=== PATIENT | female | born 1995 ===

== ENCOUNTER 2021-03-13 10:29 | Emergency (ER) | payer OTHER, SELFPAY ==
--- NOTE | ~2021-03-13 | US_ITS ---
EXAMINATION: US ABDOMEN LIMITED CLINICAL INFORMATION: Right upper quadrant pain. COMPARISON: None TECHNIQUE: Real-time imaging of the right upper quadrant abdominal viscera. Today's examination is limited secondary to patient body habitus and overlying bowel gas. FINDINGS: PANCREAS: Visualized portions of pancreas are normal in appearance. LIVER: Normal. The liver is normal in size. The liver contour is normal. Parenchymal echogenicity is normal. No focal hepatic lesion. There is no intrahepatic biliary duct dilatation seen. GALLBLADDER: The gallbladder is physiologically distended. Multiple mobile gallstones are noted. No gallbladder wall thickening or pericholecystic fluid appreciated. Negative sonographic Coronado's sign. COMMON BILE DUCT: Normal in caliber measuring 0.3 cm in diameter. RIGHT KIDNEY: Normal. No hydronephrosis. No renal calculi or focal parenchymal lesions. The kidney measures 10 cm in maximum dimension. FREE FLUID: None. US/US abdomen limited IMPRESSION: Cholelithiasis. No other ultrasound evidence to suggest acute cholecystitis. Clinical correlation recommended.
[2021-03-13 10:46] VITALS: BP 107/56; PULSE 67; RESP 20; TEMP 36.3; O2SAT 98; BMI 35.3
--- NOTE | 2021-03-13 12:33 | ED.ABDPAIN ---
HPI - Abdominal Pain General Chief Complaint: Abdominal Pain Stated Complaint: claribel pain Time Seen by Provider: 03/13/21 12:31 History of Present Illness HPI narrative: Patient 26-year-old female presents today with having burning sensation to her chest. Going down to the epigastric area. Question affected by food. There is no shortness of breath is no diaphoresis there is no history of diabetes, hypertension, high cholesterol, mi. Patient on Pepcid. No dizziness. No coughing or upper respiratory symptoms immunized for COVID. No history of diarrhea. No vomiting. Patient from home. Sometimes worse at night Related Data Previous Rx's Medication Instructions Recorded pantoprazole 40 mg tablet,delayed 40 mg PO DAILY #14 tab 03/13/21 release (Protonix) Allergies Allergy/AdvReac Type Severity Reaction Status Date / Time No Known Allergies Allergy Unverified 11/11/20 12:49 Review of Systems Review of Systems Positive pain in the epigastric area, no nausea no vomiting Yes all other systems are reviewed and are negative Physical Exam Vital Signs: Vital Signs: Last Vital Signs Temp 99.0 F 03/13/21 12:46 Pulse 77 03/13/21 12:46 Resp 16 03/13/21 12:46 BP 113/62 03/13/21 12:46 Pulse Ox 100 03/13/21 12:46 Body Mass Index 35.3 Appearance: Alert. Oriented X3. No acute distress. Eyes: Pupils equal, round and reactive to light. ENT: Pharynx normal. Neck: Normal inspection. Neck supple. No lymph nodes noted. No crepitus CVS: Normal heart rate and rhythm. Pulses normal. Normal S1 and S2 Respiratory: No respiratory distress. Breath sounds normal. No Wheezing. No rales Abdomen: Soft and nontender. No rigidity. No distention. good BS x4 Skin: Skin warm and dry. Normal skin color. Normal skin turgor. Extremities: No lower extremity edema. Neurovascular intact to all extremities. No Lacerations. No Rash Neuro: Oriented X 3. No motor deficit. No sensory deficit. Moving all extermities. No slurred speech MDM - Abdominal Pain MDM Narrative Medical decision making narrative: Ultrasound of the right upper quadrant positive for gallstones. There is no evidence for cholecystitis. Patient's LFTs are normal. Question of patient's pain worsens with fatty food. Will have patient follow a strict low-fat diet. Close follow-up with surgery on an outpatient basis. In addition patient has pain suggestive of reflux. Will go ahead and have patient take PPI eyes. Small meals extra pillow to sleep. Reflux precaution. We will discharge patient home. Medical Records Attestation: I reviewed the patient's medical records. Lab Data Attestation: I reviewed the patient's lab results. Result diagrams: 03/13/21 12:46 03/13/21 12:46 Labs: Lab Results 03/13/21 03/13/21 Range/Units 12:46 12:46 WBC 7.1 (4.8-10.8) X10*3/uL RBC 3.89 L (4.20-5.50) X10*6/uL Hgb 11.5 L (12.0-16.0) g/dl Hct 35.3 L (37.0-47.0) % MCV 90.7 (80.0-98.0) fL MCH 29.6 (27.0-33.0) pg MCHC 32.6 (31.0-35.0) g/dl RDW 12.9 (11.0-16.0) % Plt Count 390 (160-400) X10*3/uL MPV 9.8 (9.4-12.3) fL Immature Gran % (Auto) 0.1 (0.0-0.4) % Neut % (Auto) 61.2 (45-73) % Lymph % (Auto) 28.0 (20-40) % Coffey % (Auto) 9.3 (2-11) % Eos % (Auto) 1.1 (0-4) % Baso % (Auto) 0.3 (0-2) % Lymph # (Auto) 2.0 (1.2-4.9) X10*3/uL Coffey # (Auto) 0.7 (0.1-1.2) X10*3/uL Eos # (Auto) 0.1 (0.0-0.4) X10*3/uL Baso # (Auto) 0.0 (0.0-0.2) X10*3/uL Abs Immat Gran (auto) 0.01 (0.00-0.03) X10*3/uL Absolute Neuts (auto) 4.3 (2.0-8.3) x10*3/uL Absolute Nucleated RBC 0.000 (0.0-0.012) X10*3/uL Nucleated RBC % (auto) 0.0 (0.0-0.2) /100WBC Sodium 139 (135-145) mmol/L Potassium 3.6 (3.3-5.1) mmol/L Chloride 107 (96-108) mmol/L Carbon Dioxide 27 (22-29) mmol/L Anion Gap 9 L (12-20) BUN 8 L (9-16) mg/dL Creatinine 0.68 (0.5-1.4) mg/dL Estim Creat Clear Calc 140.1 Estimated GFR > 60 Random Glucose 81 (60-115) mg/dL Calcium 8.6 (8.4-10.2) mg/dL Total Bilirubin 0.4 (0.0-1.0) mg/dL Direct Bilirubin 0.2 (0.0-0.5) mg/dL AST 12 (5-31) U/L ALT 17 (0-31) U/L Alkaline Phosphatase 63 (39-117) U/L Total Protein 7.0 (6.5-8.0) g/dL Albumin 3.8 (3.5-5.0) g/dL Lipase 27 (8-78) U/L Discharge Plan Discharge Clinical Impression: Gastritis, Biliary colic, Acid reflux Patient Disposition: Home, Self-Care Instructions: Gastritis (ED), Biliary Colic (ED), Diet for Stomach Ulcers and Gastritis (ED) Prescriptions: New pantoprazole [Protonix] 40 mg tablet,delayed release (DR/EC) 40 mg PO DAILY Qty: 14 RF: 0 Discontinued famotidine [Pepcid] 40 mg tablet 40 mg PO BEDTIME Qty: 30 RF: 0 omeprazole 40 mg capsule,delayed release(DR/EC) 40 mg PO DAILY Qty: 30 RF: 2 Referrals: Fernando Rock MD [Physician] - 2 days Irma Sebastian NP [Primary Care Provider] - 2 days [facility] Past Medical History Attestation statement: The following information was validated with the patient. Social History Social History Advance Directives: No Advance Directives Information Provided: No Patient : No
[2021-03-13] MEDS: Magnesium Hydrox/Alum Hydrox 30 ML ORAL.SUSP PO (12:41)
[2021-03-13 12:46] VITALS: BP 113/62; PULSE 77; RESP 16; TEMP 37.2; O2SAT 100
[2021-03-13 13:05] LABS: MANUAL DIFF FLAG NO
[2021-03-13 13:12] LABS: Basophils Percent Auto 0.3 % (0-2); Eosinophils Absolute Auto 0.1 X10*3/uL (0.0-0.4); Eosinophils Percent Auto 1.1 % (0-4); Hematocrit 35.3 % (37.0-47.0); Hemoglobin 11.5 g/dl (12.0-16.0); Imm Gran Abs Auto 0.01 X10*3/uL (0.00-0.03); Imm Gran Pct Auto 0.1 % (0.0-0.4); Mean Corpuscular HGB Conc 32.6 g/dl (31.0-35.0); Mean Corpuscular Hemoglobin 29.6 pg (27.0-33.0); Mean Corpuscular Volume 90.7 fL (80.0-98.0); Mean Platelet Volume 9.8 fL (9.4-12.3); Monocytes Absolute Auto 0.7 X10*3/uL (0.1-1.2); Monocytes Percent Auto 9.3 % (2-11); Neutrophils Absolute Auto 4.3 x10*3/uL (2.0-8.3); Neutrophils Percent Auto 61.2 % (45-73); Platelet Count 390 X10*3/uL (160-400); Red Blood Count 3.89 X10*6/uL (4.20-5.50); Red Cell Distribution Width 12.9 % (11.0-16.0); White Blood Count 7.1 X10*3/uL (4.8-10.8)
[2021-03-13 13:31] LABS: Alanine Aminotransferase 17 U/L (0-31); Albumin Level 3.8 g/dL (3.5-5.0); Alkaline Phosphatase 63 U/L (39-117); Anion Gap 9 (12-20); Aspartate Amino Transferase 12 U/L (5-31); Bilirubin Direct 0.2 mg/dL (0.0-0.5); Bilirubin Total 0.4 mg/dL (0.0-1.0); Blood Urea Nitrogen 8 mg/dL (9-16); Calcium 8.6 mg/dL (8.4-10.2); Carbon Dioxide 27 mmol/L (22-29); Chloride 107 mmol/L (96-108); Creatinine Clr Calc Pharmacy 140.1; Estimated Glomerular Filt Rate > 60; Glucose Random 81 mg/dL (60-115); Lipase 27 U/L (8-78); Potassium 3.6 mmol/L (3.3-5.1); Sodium 139 mmol/L (135-145)
[2021-03-13 14:05] LABS: Appearance Urine CLEAR; Color Urine YELLOW; Glucose Urine UA NEG (NEG); Leukocyte Esterase Urine NEG (NEG); Nitrite Urine NEG (NEG); UACC Culture Trigger NO; Urine Blood TRACE (NEG); Urine Ketones NEG (NEG); Urine Protein TRACE MG/DL (NEG-TRACE)
[2021-03-13 14:07] LABS: UPreg QC Valid YES; Urine Pregnancy NEGATIVE (NEGATIVE)
[2021-03-13 14:19] LABS: Bacteria Urine TRACE /LPF; Mucus Urine 4+ /LPF; Squamous Epithelial Cell Urine 1+ /LPF; WBC Urine 0-2 /HPF (0-4)
== END 2021-03-13 14:44 | disposition home or self-care (01) ==
PROVIDERS: Emergency Provider Emergency Medicine Emergency Medical Services; PCP Hospitalist
DX: K80.50 Calculus of bile duct without cholangitis or cholecystitis without obstruction (principal); K29.70 Gastritis, unspecified, without bleeding; K21.9 Gastro-esophageal reflux disease without esophagitis; R10.13 Epigastric pain; Z79.899 Other long term (current) drug therapy
CPT/HCPCS: 36415; 76705; 80048; 80076; 81001; 81025; 83690; 85025; 99283; 99284

== ENCOUNTER → 2021-03-15 10:49 | Outpatient (BNVA) | payer OTHER, SELFPAY | PROVIDERS: PCP Hospitalist; Referring Provider Hospitalist; Visit Provider Surgery | DX: K80.20 Calculus of gallbladder without cholecystitis without obstruction (principal) | CPT/HCPCS: 99202 ==

== ENCOUNTER 2021-05-25 12:24 | Emergency (ER) | payer OTHER, SELFPAY ==
--- NOTE | ~2021-05-25 | XR_ITS ---
EXAMINATION: XR ANKLE, LEFT CLINICAL INFORMATION: Twisted ankle COMPARISON: None TECHNIQUE: AP, lateral, and mortise views of the left ankle. FINDINGS: The bones and soft tissues are normal aside from some mild lateral soft tissue swelling. No fracture. Alignment is anatomic. Joint spaces are maintained. No joint effusion. XR/XR ankle LT min 3V IMPRESSION: Soft tissue swelling laterally without fracture
[2021-05-25 12:35] VITALS: BP 126/75; PULSE 80; RESP 18; TEMP 36.6; O2SAT 99; BMI 36.3
--- NOTE | 2021-05-25 13:09 | ED_ITS ---
HPI - Extremity Injury (Lower) General Chief Complaint: Extremity Injury, Lower Stated Complaint: L leg pain Time Seen by Provider: 05/25/21 13:09 Source: patient Mode of arrival: ambulatory Limitations: no limitations History of Present Illness HPI Narrative: This is a 26-year-old female no known medical history presenting to the emergency department with complaints of left ankle pain/swelling that started on Saturday, 6 days ago. Patient tells me that she was running, rolled her ankle and immediately started experiencing pain. She tells me the pain improved and now has gotten a little bit worse. She has been walking without an issue so she tells me it is a little bit painful to walk and to perform range of motion. She has no other concerns at this time. Sensory and motor intact. MD complaint: ankle injury (left) Onset (ago): day(s) (6) Place: home Severity: moderate Severity scale (1-10): 5 Relieving factors: immobilization and rest Exacerbating factors: movement Context: other (rolled ankle while running.) Associated symptoms: swelling and ambulatory Other symptoms: none Related Data Home Medications Medication Instructions Recorded Confirmed No Known Home Meds 04/03/21 Allergies Allergy/AdvReac Type Severity Reaction Status Date / Time No Known Allergies Allergy Verified 04/03/21 13:38 Review of Systems Review of Systems: Constitutional : No Fever, No Chills, Cardiovascular : No Chest Pain, No SOB Respiratory : No Dyspnea Gastrointestinal : No abdominal pain Musculoskeletal : + Joint Swelling, + Joint pain Skin : No rash, No skin laceration Neuro : No Weakness, No Numbness Psych : No SI/HI Yes all other systems are reviewed and are negative [facility] Past Medical History Attestation statement: The following information was validated with the patient. Source: old records reviewed and nursing notes reviewed Medical History Gallstones Social History Social History Housing: Apartment Patient Tobacco Use Status: Never used Tobacco e-Cigarette/Vaping Use: Never Used Second Hand Smoke Exposure: No Advance Directives: No Advance Directives Information Provided: No service: No Current occupational status: unemployed Physical Exam Vital Signs: Vital Signs: Last Vital Signs Temp 98 F 05/25/21 12:35 Pulse 80 01/20/22 12:35 Resp 18 05/25/21 12:35 BP 126/75 05/25/21 12:35 Pulse Ox 99 05/25/21 12:35 BMI result Body Mass Index 36.3 VSS Appearance: Alert.? Oriented X3.? No acute distress.? Head: Normocephalic, atraumatic, no step-offs or deformities Eyes: Pupils equal, round and reactive to light.? ENT: Pharynx normal.? Neck: Normal inspection.? Neck supple.? CVS: Normal heart rate and rhythm.? Pulses normal.? Respiratory: No respiratory distress.? Breath sounds normal.? Abdomen: Soft and nontender.? Skin: Skin warm and dry.? Normal skin color.? Normal skin turgor.? Extremities: No lower extremity edema.? No calf ttp. 5/5 strength to bilateral upper and lower extremities. Normal inspection to bilateral lower extremities including ankle, normal strength. 2+ DP and PT pulses. Back: No midline tenderness, no C-spine tenderness, full range of motion, no CVA tenderness bilaterally Neuro: Oriented X 3.? No motor deficit.? No sensory deficit. Course Reevaluation(s) Reevaluation #1: xray negative. She was put in an Aircast. Did not want crutches. At this time I feel as though she is safe for discharge home with PCP follow-up. There is no evident ligament or tendon involvement. She has been advised to return with new or worsening symptom Time: 14:12 MDM - Extremity Injury (Lower) [facility] Narrative Medical decision making narrative: 1312 26 yo f presents w/ left ankle pain/swelling s/p rolling her ankle 6 days ago. Able to bear weight. PE benign Plan- xray, air cast Medical Records Attestation: I reviewed the patient's medical records. Lab Data Attestation: I reviewed the patient's lab results. Critical Care Time Critical Care Time Critical Care Time: No Discharge Plan Discharge Clinical Impression: Ankle sprain and strain Patient Disposition: Home, Self-Care Instructions: Ankle Sprain (ED) Additional Instructions: Take your medications as prescribed. If you were prescribed antibiotics today, it is important that you take your medication to their entirety, do not skip any doses, do not finish them early. Follow-up with your primary care provider this week. Take ibuprofen every 6 hours, Tylenol every 4 as needed for pain. Return to the emergency department with new or worsening symptoms. In case of emergency call 911 Prescriptions: No Action No Known Home Meds RF: 0 Referrals: Irma Sebastian NP [Primary Care Provider] - 2 days Stand Alone Forms: Work/School Release Interventions: ED Discharge Assessment Last Done: 05/25/21 14:05 Discharge Date/Time: 05/25/21 14:06
== END 2021-05-25 14:22 | disposition home or self-care (01) ==
PROVIDERS: Emergency Provider Emergency Medicine Emergency Medical Services; PCP Hospitalist
DX: S93.402A Sprain of unspecified ligament of left ankle, initial encounter (principal); S96.912A Strain of unspecified muscle and tendon at ankle and foot level, left foot, initial encounter; X50.1XXA Overexertion from prolonged static or awkward postures, initial encounter; Y93.02 Activity, running; Y92.480 Sidewalk as the place of occurrence of the external cause; Y99.9 Unspecified external cause status
CPT/HCPCS: 73610; 99283; 99284

== ENCOUNTER 2022-04-02 10:23 | Emergency (ER) | payer OTHER, SELFPAY ==
--- NOTE | ~2022-04-02 | US_ITS ---
EXAMINATION: US ABDOMEN LIMITED CLINICAL INFORMATION: Right upper quadrant and flank pain. COMPARISON: Abdominal ultrasound dated 03/13/2021. TECHNIQUE: Real-time imaging of the right upper quadrant abdominal viscera. FINDINGS: PANCREAS: Visualized portions unremarkable. LIVER: Unremarkable. GALLBLADDER: Multiple echogenic gallstones fill the gallbladder lumen which is minimally distended. No significant mural thickening or pericholecystic fluid. Color Doppler showed no abnormal vascular flow. COMMON BILE DUCT: Normal in caliber measuring 0.4 cm in diameter. RIGHT KIDNEY: 10.9 cm. Unremarkable. FREE FLUID: None. US/US abdomen limited IMPRESSION: Cholelithiasis appears increased compared to the previous study with limited evaluation. No overt evidence for acute cholecystitis.
[2022-04-02 11:33] VITALS: BP 109/63; PULSE 72; RESP 18; TEMP 36.4; O2SAT 100; BMI 35.8
--- NOTE | 2022-04-02 12:09 | ED_ITS ---
HPI - Abdominal Pain General Chief Complaint: Abdominal Pain <ATA Oglesby - Last Filed: 04/02/22 12:17> Stated Complaint: Gallbladder issues/Vomiting <ATA Oglesby - Last Filed: 04/02/22 12:17> Time Seen by Provider: 04/02/22 15:38 <ATA Oglesby - Last Filed: 04/02/22 12:17> Source: patient <Alexa Seymour NILS Rodriguez - Last Filed: 04/02/22 21:30> Mode of arrival: ambulatory <Alexa Rodriguez CNP - Last Filed: 04/02/22 21:30> Limitations: no limitations <Alexa Rodriguez CNP - Last Filed: 04/02/22 21:30> History of Present Illness HPI narrative: Patient is a 27-year-old female presents to the emergency department for evaluation of right upper quadrant/lateral abdominal pain that began this morning while sitting on the couch. She reports associated nausea with a single episode of vomiting. She states it feels similar to prior gallbladder attacks this feels worse. She states that she has been seen by a surgeon in the past and they recommended surgical removal of the gallbladder with at that time she had declined surgery. Denies fevers, chills, persistent vomiting while at the emergency department, chest pain, shortness of breath, or abdominal pain, dysuria, urinary frequency. <Alexa Rodriguez CNP - Last Filed: 04/02/22 21:30> Related Data Home Medications: Previous Rx's Medication Instructions Recorded ibuprofen 600 mg tablet 600 mg PO Q8H PRN pain #30 tabs 04/02/22 <ATA Oglesby - Last Filed: 04/02/22 12:17> Allergies/Adverse Reactions: Allergies Allergy/AdvReac Type Severity Reaction Status Date / Time No Known Allergies Allergy Verified 06/27/21 11:55 <ATA Oglesby - Last Filed: 04/02/22 12:17> Review of Systems Review of Systems Constitutional : No Weight loss, No Fever, No Chills ENT/Mouth :? No sore throat, No Rhinorrhea Eyes: No Swelling, No Redness Cardiovascular : No Chest Pain, No SOB, No Edema Respiratory : No Cough, No Sputum, No Wheezing Gastrointestinal : Positive Nausea, Positive Vomiting, no Diarrhea, positive abdominal pain, No Hematochezia, No Melena Genitourinary : No Dysuria, No Urinary Frequency, No Hematuria, No Urgency? Musculoskeletal : No joint pain, No Myalgias, No Joint Swelling Skin : No Skin Lesions, No rash Neuro : No Weakness, No Numbness, No Dizziness, No Headache Psych : No Anxiety/Panic, No Depression Heme/Lymph: No Bruising, No Lymphadenopathy Endocrine : No Polyuria, No Polydipsia <Alexa Rodriguez CNP - Last Filed: 04/02/22 21:30> Yes all other systems are reviewed and are negative <Alexa Rodriguez CNP - Last Filed: 04/02/22 21:30> [facility] Past Medical History Attestation statement: The following information was validated with the patient. <Alexa Rodriguez CNP - Last Filed: 04/02/22 21:30> Source: old records reviewed <Alexa Rodriguez CNP - Last Filed: 04/02/22 21:30> Medical History: Medical History Gallstones <ATA Oglesby - Last Filed: 04/02/22 12:17> Surgical History: Surgical History No pertinent past surgical history <ATA Oglesby - Last Filed: 04/02/22 12:17> Social History Social History: Social History Housing: Apartment Patient Tobacco Use Status: Never used Tobacco e-Cigarette/Vaping Use: Never Used Second Hand Smoke Exposure: No Advance Directives: No Advance Directives Information Provided: Yes service: No Current occupational status: unemployed and disabled Cognitive needs: No Hearing needs: No Vision needs: No <ATA Oglesby - Last Filed: 04/02/22 12:17> Physical Exam ED Vital Signs: Vital Signs - 24 hr 04/02/22 11:33 Temperature 97.6 F Pulse Rate 72 Respiratory Rate 18 Blood Pressure 109/63 Pulse Oximetry 100 Oxygen Delivery Method Room Air BMI result Body Mass Index 35.8 <ATA Oglesby - Last Filed: 04/02/22 12:17> Vital Signs - 24 hr 04/02/22 11:33 Temperature 97.6 F Pulse Rate 72 Respiratory Rate 18 Blood Pressure 109/63 Pulse Oximetry 100 Oxygen Delivery Method Room Air BMI result Body Mass Index 35.8 <Alexa Rodriguez CNP - Last Filed: 04/02/22 21:30> Appearance: Alert.?Oriented to person, place and time. No acute distress.?Normal affect. Eyes: Pupils equal, round and reactive to light.? ENT: Pharynx normal.?? Neck: Normal inspection.? Neck supple.?? CVS: Heart sounds normal. Normal heart rate and rhythm.? Pulses normal.?? Respiratory: No respiratory distress.? Lung sounds clear to auscultation bilaterally?? Abdomen: Soft with mild right upper quadrant tenderness upon palpation. Normoactive bowel sounds. Skin: Skin warm and dry.? Normal skin color.? Extremities: No lower extremity edema.? Neuro: Moves all extremities spontaneously. Sensation intact bilaterally. No focal neuro deficits. Ambulates with normal steady gait. <Alexa Rodriguez CNP - Last Filed: 04/02/22 21:30> Course Course Course Narrative: 27 yo female with history of gallstones, biliary colic and gastritis who presents with acute onset of RUQ and right flank pain that started today when she was on the cough. +N/V. Worse than prior gallbladder attacks. Will get labs and RUQ/right kidney U/S for further evaluation. <ATA Oglesby - Last Filed: 04/02/22 12:17> Reevaluation(s) Reevaluation #1: Patient is a 27-year-old female with a past medical history of cholelithiasis gastritis into the emergency department for evaluation of upper quadrant abdominal pain. Labs ordered from A reviewed. CMP overall unremarkable, mild leukocytosis of 11.3. Lipase within normal limits. CMP overall unremarkable. Ultrasound reveals cholelithiasis without overt evidence of acute cholecystitis, kidneys are unremarkable. No evidence of urinary tract infection. Tolerating oral solids and fluids while in the emergency department. 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 All questions answered. She is discharged in stable condition. <Alexa Rodriguez CNP - Last Filed: 04/02/22 21:30> Time: 16:15 <Alexa Rodriguez CNP - Last Filed: 04/02/22 21:30> MDM - Abdominal Pain Medical Records Attestation: I reviewed the patient's medical records. <Alexa Rodriguez CNP - Last Filed: 04/02/22 21:30> Lab Data Attestation: I reviewed the patient's lab results. <Alexa Rodriguez CNP - Last Filed: 04/02/22 21:30> Result diagrams: : 04/02/22 12:13 04/02/22 12:13 <ATA Oglesby - Last Filed: 04/02/22 12:17> Labs: Lab Results 04/02/22 04/02/22 04/02/22 Range/Units 12:13 12:13 12:44 WBC 11.3 H (4.8-10.8) X10*3/uL RBC 4.21 (4.20-5.50) X10*6/uL Hgb 12.6 (12.0-16.0) g/dl Hct 38.5 (37.0-47.0) % MCV 91.4 (80.0-98.0) fL MCH 29.9 (27.0-33.0) pg MCHC 32.7 (31.0-35.0) g/dl RDW 12.8 (11.0-16.0) % Plt Count 408 H (160-400) X10*3/uL MPV 9.7 (9.4-12.3) fL Immature Gran % (Auto) 0.3 (0.0-0.4) % Neut % (Auto) 85.5 H (45-73) % Lymph % (Auto) 9.6 L (20-40) % [place] % (Auto) 4.1 (2-11) % Eos % (Auto) 0.2 (0-4) % Baso % (Auto) 0.3 (0-2) % Lymph # (Auto) 1.1 L (1.2-4.9) X10*3/uL [place] # (Auto) 0.5 (0.1-1.2) X10*3/uL Eos # (Auto) 0.0 (0.0-0.4) X10*3/uL Baso # (Auto) 0.0 (0.0-0.2) X10*3/uL Abs Immat Gran (auto) 0.03 (0.00-0.03) X10*3/uL Absolute Neuts (auto) 9.7 H (2.0-8.3) x10*3/uL Absolute Nucleated RBC 0.000 (0.0-0.012) X10*3/uL Nucleated RBC % (auto) 0.0 (0.0-0.2) /100WBC Sodium 135 (135-145) mmol/L Potassium 4.4 D (3.3-5.1) mmol/L Chloride 106 (96-108) mmol/L Carbon Dioxide 23 (22-29) mmol/L Anion Gap 10 L (12-20) BUN 15 (9-16) mg/dL Creatinine 0.83 (0.5-1.4) mg/dL Estim Creat Clear Calc 102.3 Estimated GFR > 60 Random Glucose 166 H (60-115) mg/dL Calcium 9.0 (8.4-10.2) mg/dL Total Bilirubin 0.4 (0.0-1.0) mg/dL Direct Bilirubin 0.2 (0.0-0.5) mg/dL AST 15 (5-31) U/L ALT 23 (0-31) U/L Alkaline Phosphatase 72 (39-117) U/L Total Protein 7.4 (6.5-8.0) g/dL Albumin 3.9 (3.5-5.0) g/dL Lipase 21 (8-78) U/L Urine Color Yellow Urine Appearance Clear Urine pH 5.5 (5.0-9.0) Ur Specific [place] >= 1.030 H (1.005-1.025) Urine Protein Negative (Neg-Trace) mg/dL Urine Glucose (UA) Negative (Negative) mg/dL Urine Ketones 40 (Negative) mg/dL Urine Blood Moderate (2+) H (Negative) Urine Nitrite Negative (Negative) Ur Leukocyte Esterase Negative (Negative) Urine RBC 11-20 H (0-2) /HPF Urine WBC 0-5 (0-5) /HPF Ur Squamous Epith Cells 0-2 (0-2) /HPF Urine Bacteria None Seen (None Seen) Hyaline Casts 0-2 (0-2) /LPF Urine Test (NEGATIVE) 04/02/22 Range/Units 12:44 WBC (4.8-10.8) X10*3/uL RBC (4.20-5.50) X10*6/uL Hgb (12.0-16.0) g/dl Hct (37.0-47.0) % MCV (80.0-98.0) fL MCH (27.0-33.0) pg MCHC (31.0-35.0) g/dl RDW (11.0-16.0) % Plt Count (160-400) X10*3/uL MPV (9.4-12.3) fL Immature Gran % (Auto) (0.0-0.4) % Neut % (Auto) (45-73) % Lymph % (Auto) (20-40) % [place] % (Auto) (2-11) % Eos % (Auto) (0-4) % Baso % (Auto) (0-2) % Lymph # (Auto) (1.2-4.9) X10*3/uL [place] # (Auto) (0.1-1.2) X10*3/uL Eos # (Auto) (0.0-0.4) X10*3/uL Baso # (Auto) (0.0-0.2) X10*3/uL Abs Immat Gran (auto) (0.00-0.03) X10*3/uL Absolute Neuts (auto) (2.0-8.3) x10*3/uL Absolute Nucleated RBC (0.0-0.012) X10*3/uL Nucleated RBC % (auto) (0.0-0.2) /100WBC Sodium (135-145) mmol/L Potassium (3.3-5.1) mmol/L Chloride (96-108) mmol/L Carbon Dioxide (22-29) mmol/L Anion Gap (12-20) BUN (9-16) mg/dL Creatinine (0.5-1.4) mg/dL Estim Creat Clear Calc Estimated GFR Random Glucose (60-115) mg/dL Calcium (8.4-10.2) mg/dL Total Bilirubin (0.0-1.0) mg/dL Direct Bilirubin (0.0-0.5) mg/dL AST (5-31) U/L ALT (0-31) U/L Alkaline Phosphatase (39-117) U/L Total Protein (6.5-8.0) g/dL Albumin (3.5-5.0) g/dL Lipase (8-78) U/L Urine Color Urine Appearance Urine pH (5.0-9.0) Ur Specific [place] (1.005-1.025) Urine Protein (Neg-Trace) mg/dL Urine Glucose (UA) (Negative) mg/dL Urine Ketones (Negative) mg/dL Urine Blood (Negative) Urine Nitrite (Negative) Ur Leukocyte Esterase (Negative) Urine RBC (0-2) /HPF Urine WBC (0-5) /HPF Ur Squamous Epith Cells (0-2) /HPF Urine Bacteria (None Seen) Hyaline Casts (0-2) /LPF Urine Test NEGATIVE (NEGATIVE) <ATA Oglesby - Last Filed: 04/02/22 12:17> Lab Results 04/02/22 04/02/22 04/02/22 Range/Units 12:13 12:13 12:44 WBC 11.3 H (4.8-10.8) X10*3/uL RBC 4.21 (4.20-5.50) X10*6/uL Hgb 12.6 (12.0-16.0) g/dl Hct 38.5 (37.0-47.0) % MCV 91.4 (80.0-98.0) fL MCH 29.9 (27.0-33.0) pg MCHC 32.7 (31.0-35.0) g/dl RDW 12.8 (11.0-16.0) % Plt Count 408 H (160-400) X10*3/uL MPV 9.7 (9.4-12.3) fL Immature Gran % (Auto) 0.3 (0.0-0.4) % Neut % (Auto) 85.5 H (45-73) % Lymph % (Auto) 9.6 L (20-40) % [place] % (Auto) 4.1 (2-11) % Eos % (Auto) 0.2 (0-4) % Baso % (Auto) 0.3 (0-2) % Lymph # (Auto) 1.1 L (1.2-4.9) X10*3/uL [place] # (Auto) 0.5 (0.1-1.2) X10*3/uL Eos # (Auto) 0.0 (0.0-0.4) X10*3/uL Baso # (Auto) 0.0 (0.0-0.2) X10*3/uL Abs Immat Gran (auto) 0.03 (0.00-0.03) X10*3/uL Absolute Neuts (auto) 9.7 H (2.0-8.3) x10*3/uL Absolute Nucleated RBC 0.000 (0.0-0.012) X10*3/uL Nucleated RBC % (auto) 0.0 (0.0-0.2) /100WBC Sodium 135 (135-145) mmol/L Potassium 4.4 D (3.3-5.1) mmol/L Chloride 106 (96-108) mmol/L Carbon Dioxide 23 (22-29) mmol/L Anion Gap 10 L (12-20) BUN 15 (9-16) mg/dL Creatinine 0.83 (0.5-1.4) mg/dL Estim Creat Clear Calc 102.3 Estimated GFR > 60 Random Glucose 166 H (60-115) mg/dL Calcium 9.0 (8.4-10.2) mg/dL Total Bilirubin 0.4 (0.0-1.0) mg/dL Direct Bilirubin 0.2 (0.0-0.5) mg/dL AST 15 (5-31) U/L ALT 23 (0-31) U/L Alkaline Phosphatase 72 (39-117) U/L Total Protein 7.4 (6.5-8.0) g/dL Albumin 3.9 (3.5-5.0) g/dL Lipase 21 (8-78) U/L Urine Color Yellow Urine Appearance Clear Urine pH 5.5 (5.0-9.0) Ur Specific [place] >= 1.030 H (1.005-1.025) Urine Protein Negative (Neg-Trace) mg/dL Urine Glucose (UA) Negative (Negative) mg/dL Urine Ketones 40 (Negative) mg/dL Urine Blood Moderate (2+) H (Negative) Urine Nitrite Negative (Negative) Ur Leukocyte Esterase Negative (Negative) Urine RBC 11-20 H (0-2) /HPF Urine WBC 0-5 (0-5) /HPF Ur Squamous Epith Cells 0-2 (0-2) /HPF Urine Bacteria None Seen (None Seen) Hyaline Casts 0-2 (0-2) /LPF Urine Test (NEGATIVE) 04/02/22 Range/Units 12:44 WBC (4.8-10.8) X10*3/uL RBC (4.20-5.50) X10*6/uL Hgb (12.0-16.0) g/dl Hct (37.0-47.0) % MCV (80.0-98.0) fL MCH (27.0-33.0) pg MCHC (31.0-35.0) g/dl RDW (11.0-16.0) % Plt Count (160-400) X10*3/uL MPV (9.4-12.3) fL Immature Gran % (Auto) (0.0-0.4) % Neut % (Auto) (45-73) % Lymph % (Auto) (20-40) % [place] % (Auto) (2-11) % Eos % (Auto) (0-4) % Baso % (Auto) (0-2) % Lymph # (Auto) (1.2-4.9) X10*3/uL [place] # (Auto) (0.1-1.2) X10*3/uL Eos # (Auto) (0.0-0.4) X10*3/uL Baso # (Auto) (0.0-0.2) X10*3/uL Abs Immat Gran (auto) (0.00-0.03) X10*3/uL Absolute Neuts (auto) (2.0-8.3) x10*3/uL Absolute Nucleated RBC (0.0-0.012) X10*3/uL Nucleated RBC % (auto) (0.0-0.2) /100WBC Sodium (135-145) mmol/L Potassium (3.3-5.1) mmol/L Chloride (96-108) mmol/L Carbon Dioxide (22-29) mmol/L Anion Gap (12-20) BUN (9-16) mg/dL Creatinine (0.5-1.4) mg/dL Estim Creat Clear Calc Estimated GFR Random Glucose (60-115) mg/dL Calcium (8.4-10.2) mg/dL Total Bilirubin (0.0-1.0) mg/dL Direct Bilirubin (0.0-0.5) mg/dL AST (5-31) U/L ALT (0-31) U/L Alkaline Phosphatase (39-117) U/L Total Protein (6.5-8.0) g/dL Albumin (3.5-5.0) g/dL Lipase (8-78) U/L Urine Color Urine Appearance Urine pH (5.0-9.0) Ur Specific [place] (1.005-1.025) Urine Protein (Neg-Trace) mg/dL Urine Glucose (UA) (Negative) mg/dL Urine Ketones (Negative) mg/dL Urine Blood (Negative) Urine Nitrite (Negative) Ur Leukocyte Esterase (Negative) Urine RBC (0-2) /HPF Urine WBC (0-5) /HPF Ur Squamous Epith Cells (0-2) /HPF Urine Bacteria (None Seen) Hyaline Casts (0-2) /LPF Urine Test NEGATIVE (NEGATIVE) <Alexa Rodriguez CNP - Last Filed: 04/02/22 21:30> Imaging Data US - abdomen: Radiologist's impression: FINDINGS: PANCREAS: Visualized portions unremarkable. LIVER: Unremarkable. GALLBLADDER: Multiple echogenic gallstones fill the gallbladder lumen which is minimally distended. No significant mural thickening or pericholecystic fluid. Color Doppler showed no abnormal vascular flow. COMMON BILE DUCT: Normal in caliber measuring 0.4 cm in diameter. RIGHT KIDNEY: 10.9 cm. Unremarkable. FREE FLUID: None. US/US abdomen limited IMPRESSION: Cholelithiasis appears increased compared to the previous study with limited evaluation. No overt evidence for acute cholecystitis. <Alexa Rodriguez CNP - Last Filed: 04/02/22 21:30> Discharge Plan Discharge Clinical Impression: Biliary colic, Gallstones <ATA Oglesby - Last Filed: 04/02/22 12:17> Patient Disposition: Home, Self-Care <ATA Oglesby - Last Filed: 04/02/22 12:17> Instructions: Biliary Colic (ED), Gallstones (ED) <ATA Oglesby - Last Filed: 04/02/22 12:17> Additional Instructions: You can take ibuprofen 200 mg, 3 tablets (600mg) every 6-8 hours as needed for pain, in addition to Tylenol 500 mg, 2 tablets (1,000mg) every 4-6 hours as needed for pain, but not to exceed 3 doses daily (3,000mg).? Avoid foods that are high in fat and greasy exacerbate your pain. Return to emergency department any new or worsening symptoms or concerns. Contact general surgery office to arrange for follow-up and discuss possible surgical options if you are interested. <ATA Oglesby - Last Filed: 04/02/22 12:17> Prescriptions: New ibuprofen 600 mg tablet 600 mg PO Q8H PRN (Reason: pain) Qty: 30 0RF <ATA Oglesby - Last Filed: 04/02/22 12:17> Referrals: Hudson Hatch MD [Physician] - <ATA Oglesby - Last Filed: 04/02/22 12:17> Interventions: ED Discharge Assessment Last Done: 04/02/22 16:36 <ATA Oglesby - Last Filed: 04/02/22 12:17> Discharge Date/Time: 04/02/22 16:38 <ATA Oglesby - Last Filed: 04/02/22 12:17>
[2022-04-02 12:20] LABS: MANUAL DIFF FLAG NO
[2022-04-02 12:24] LABS: Basophils Percent Auto 0.3 % (0-2); Eosinophils Percent Auto 0.2 % (0-4); Hematocrit 38.5 % (37.0-47.0); Hemoglobin 12.6 g/dl (12.0-16.0); Imm Gran Abs Auto 0.03 X10*3/uL (0.00-0.03); Imm Gran Pct Auto 0.3 % (0.0-0.4); Lymphocytes Absolute Auto 1.1 X10*3/uL (1.2-4.9); Lymphocytes Percent Auto 9.6 % (20-40); Mean Corpuscular HGB Conc 32.7 g/dl (31.0-35.0); Mean Corpuscular Hemoglobin 29.9 pg (27.0-33.0); Mean Corpuscular Volume 91.4 fL (80.0-98.0); Mean Platelet Volume 9.7 fL (9.4-12.3); Monocytes Absolute Auto 0.5 X10*3/uL (0.1-1.2); Monocytes Percent Auto 4.1 % (2-11); Neutrophils Absolute Auto 9.7 x10*3/uL (2.0-8.3); Neutrophils Percent Auto 85.5 % (45-73); Platelet Count 408 X10*3/uL (160-400); Red Blood Count 4.21 X10*6/uL (4.20-5.50); Red Cell Distribution Width 12.8 % (11.0-16.0); White Blood Count 11.3 X10*3/uL (4.8-10.8)
[2022-04-02 12:53] LABS: Alanine Aminotransferase 23 U/L (0-31); Albumin Level 3.9 g/dL (3.5-5.0); Alkaline Phosphatase 72 U/L (39-117); Anion Gap 10 (12-20); Aspartate Amino Transferase 15 U/L (5-31); Bilirubin Direct 0.2 mg/dL (0.0-0.5); Bilirubin Total 0.4 mg/dL (0.0-1.0); Carbon Dioxide 23 mmol/L (22-29); Chloride 106 mmol/L (96-108); Creatinine Clr Calc Pharmacy 102.3; Estimated Glomerular Filt Rate > 60; Glucose Random 166 mg/dL (60-115); Lipase 21 U/L (8-78); Potassium 4.4 mmol/L (3.3-5.1); Sodium 135 mmol/L (135-145); Total Protein 7.4 g/dL (6.5-8.0)
[2022-04-02 12:59] LABS: Appearance Urine Clear; Color Urine Yellow; Glucose Urine UA Negative (Negative); Leukocyte Esterase Urine Negative (Negative); Nitrite Urine Negative (Negative); PH 5.5 (5.0-9.0); Specific Gravity - Urine >= 1.030 (1.005-1.025); UMIC TRIGGER UACC YES; Urine Blood Moderate (2+) (Negative); Urine Ketones 40 mg/dL (Negative); Urine Protein Negative (Neg-Trace)
[2022-04-02 13:01] LABS: UPreg QC Valid YES; Urine Pregnancy NEGATIVE (NEGATIVE)
[2022-04-02 13:02] LABS: Bacteria Urine None Seen (None Seen); Hyaline Casts Urine 0-2 /LPF (0-2); Squamous Epithelial Cell Urine 0-2 /HPF (0-2); WBC Urine 0-5 /HPF (0-5)
[2022-04-02 13:12] LABS: Blood Urea Nitrogen 15 mg/dL (9-16)
== END 2022-04-02 16:38 | disposition home or self-care (01) ==
PROVIDERS: Physician Assistant; Emergency Provider Emergency Medicine; PCP Hospitalist
DX: K80.70 Calculus of gallbladder and bile duct without cholecystitis without obstruction (principal); R10.9 Unspecified abdominal pain
CPT/HCPCS: 36415; 76705; 80053; 81001; 81025; 82248; 83690; 85025; 99282; 99284

== ENCOUNTER 2022-10-03 16:07 | Emergency (ER) | payer OTHER, SELFPAY ==
--- NOTE | ~2022-10-03 | XR_ITS ---
EXAMINATION: XR CHEST CLINICAL INFORMATION: Shortness of breath COMPARISON: None available. TECHNIQUE: 2 views of the chest were obtained. FINDINGS: No significant abnormality is noted involving the heart, lungs, mediastinum, bony thorax or soft tissues. XR/XR chest 2V IMPRESSION: No acute disease.
[2022-10-03 16:23] VITALS: BP 136/78; PULSE 103; RESP 20; TEMP 37.4; O2SAT 98; BMI 39.7
--- NOTE | 2022-10-03 16:24 | ED_ITS ---
HPI - General Adult General Chief complaint: Upper Respiratory Symptoms Stated complaint: Throat/ear pain Time Seen by Provider: 10/03/22 19:45 Source: patient Mode of arrival: ambulatory Limitations: no limitations History of Present Illness HPI narrative: Patient comes to the emergency room complaining of 4 days of sore throat, ear discomfort and cough. Denies fever chills, no difficulty swallowing. Related Data Previous Rx's Medication Instructions Recorded ibuprofen 600 mg tablet 600 mg PO Q8H PRN pain #30 tabs 04/02/22 Allergies Allergy/AdvReac Type Severity Reaction Status Date / Time No Known Allergies Allergy Verified 04/05/22 10:54 Review of Systems Review of Systems: Constitutional : No Weight loss, No Fever, No Chills, No Night Sweats, No Fatigue, No Malaise ENT/Mouth : No Hearing loss, complaining of bilateral Ear discomfort, no drainage, No Nasal Congestion, No Sinus Pain, No Hoarseness, complaining of sore throat, No Rhinorrhea, No Swallowing Difficulty Eyes: No Eye Pain, No Swelling, No Redness, No Foreign Body, No Discharge, No Vision Changes Cardiovascular : No Chest Pain, No SOB, No Dyspnea on Exertion, No Orthopnea, No Edema, No Palpitations Respiratory : Complaining of dry cough, No Sputum, No Wheezing, No Smoke Exposure, No Dyspnea Gastrointestinal : No Nausea, No Vomiting, No Diarrhea, No Constipation, No abdominal Pain, No Hematochezia, No Melena Genitourinary : no irregular bleeding, No Dysuria, No Urinary Frequency, No Hematuria, No Urinary Incontinence, No Urgency, No Flank Pain, No Urinary Flow Changes, No Hesitancy Musculoskeletal : No joint pain, No Myalgias, No Joint Swelling Skin : No Skin Lesions, No rash Neuro : No Weakness, No Numbness, No Paresthesias, No Loss of Consciousness, No Dizziness, No Headache Psych : No Anxiety/Panic, No Depression, No SI/HI/AH/VH, No Social Issues, Heme/Lymph: No Bruising, No Bleeding,No Lymphadenopathy Endocrine : No Polyuria, No Polydipsia, No Temperature Intolerance [facility] Past Medical History Medical History Gallstones Surgical History No pertinent past surgical history Social History Social History Housing: Apartment Patient Tobacco Use Status: Never used Tobacco e-Cigarette/Vaping Use: Never Used Second Hand Smoke Exposure: No Advance Directives: No Advance Directives Information Provided: No service: No Current occupational status: unemployed and disabled Current occupational exposures/hazards: No Cognitive needs: No Hearing needs: No Vision needs: No Physical Exam ED Vital Signs: Vital Signs - 24 hr 10/03/22 16:23 10/03/22 19:17 Temperature 99.3 F 99.9 F Pulse Rate 103 H 95 Respiratory Rate 20 16 Blood Pressure 136/78 112/78 Pulse Oximetry 98 99 Oxygen Delivery Method Room Air Room Air BMI result Body Mass Index 39.7 Const Other: Appearance: Alert. Oriented X3. No acute distress. Eyes: Pupils equal, round and reactive to light. ENT: Pharynx erythematous, no exudates. Bilateral ears within normal limits, tympanic membranes normal, no perforation or erythema Neck: Normal inspection. Neck supple. No lymph nodes noted. No crepitus CVS: Normal heart rate and rhythm. Pulses normal. Normal S1 and S2 Respiratory: No respiratory distress. Breath sounds normal. No Wheezing. No rales Abdomen: Soft and nontender. No rigidity. No distention. Skin: Skin warm and dry. Normal skin color. Normal skin turgor. Extremities: No lower extremity edema. No Lacerations. No Rash Neuro: Oriented X 3. No motor deficit. No sensory deficit. Moving all extremi ties. No slurred speech. CN 2 through 12 grossly intact Psych: calm, cooperative, normal affect Course Course Course Narrative: This is an RME: Additional HPI, ROS, PE not included below will be deferred to primary provider. This is a [id number], with a hx of asthma, presenting to the emergency department with complaints of sore throat, ear pain, cough and shortness of breath x 4 days. No sick contacts. VSS in triage. Plan: CXR, viral swabs, strep test ordered. Medical Decision Making Medical Decision Making [facility] Narrative: -my interpretation of chest x-ray: No pneumonia -patient tested negative for influenza, RSV and strep and COVID -likely having viral pharyngitis -patient given p.o. Decadron and viscous lidocaine for symptomatic relief Lab Data Labs: Lab Results 10/03/22 10/03/22 Range/Units 16:53 16:53 Influenza Type A (PCR) NEGATIVE (Negative) Influenza Type B (PCR) NEGATIVE (Negative) RSV RNA Qual (PCR) NEGATIVE (Negative) SARS-CoV-2 RNA (RT-PCR) NEGATIVE (Negative) S. pyogenes GrpA FRIEDA Negative (Negative) Radiology Impression Discussion of test interpretation with radiology: I have reviewed the radiologist's reading. Radiologist Impression: FINDINGS: No significant abnormality is noted involving the heart, lungs, mediastinum, bony thorax or soft tissues. XR/XR chest 2V IMPRESSION: No acute disease. Discharge Plan Discharge Clinical Impression: Acute viral pharyngitis Patient Disposition: Home, Self-Care Instructions: Pharyngitis (ED) Additional Instructions: Please follow-up with your primary care physician tomorrow. If you have any worsening or new symptoms, please return to the emergency room or call 911 Prescriptions: No Action ibuprofen 600 mg tablet 600 mg PO Q8H PRN (Reason: pain) Qty: 30 0RF
[2022-10-03 17:16] LABS: IDNOW Serial# 08D9AD1C; Strep A Nucleic Acid Negative (Negative)
[2022-10-03 17:42] LABS: Influenza A PCR NEGATIVE (Negative); Influenza B PCR NEGATIVE (Negative); Resp Syncy Virus RNA Qual PCR NEGATIVE (Negative); SARS COV2 PCR INHOUSE NEGATIVE (Negative)
[2022-10-03 19:17] VITALS: BP 112/78; PULSE 95; RESP 16; TEMP 37.7; O2SAT 99
[2022-10-03] MEDS: dexAMETHasone sod phosphate 4 MG/ML VIAL 6 MG IVPUSH (20:02)
[2022-10-03] MEDS: Lidocaine HCl Viscous 2 % 15 ML SOLUTION MUCOUS MEM (20:02)
== END 2022-10-03 20:07 | disposition home or self-care (01) ==
PROVIDERS: Physician Assistant Medical; Emergency Provider Emergency Medicine; PCP Hospitalist
DX: J02.9 Acute pharyngitis, unspecified (principal); R05.9 Cough, unspecified; Z20.822 Contact with and (suspected) exposure to COVID-19; Z20.828 Contact with and (suspected) exposure to other viral communicable diseases
CPT/HCPCS: 0241U; 71046; 87651; 99282; 99283; J1100

== ENCOUNTER 2023-08-28 12:52 | Outpatient (AMB) | payer OTHER, SELFPAY ==
--- NOTE | 2023-08-28 12:55 | A.OFFPC_ITS ---
Vital Signs 08/28/23 13:00 Height 5 ft 1 in Weight 239 lb BMI 45.2 BP 119/67 Blood Pressure Location Rt brachial Position Sitting Respiration 13 Pulse 97 Pulse Source Pulse Oximeter Temp 98.8 F Temp Source Temporal Artery Scan Pulse Oximetry (%) 99 Oxygen Delivery Method Room Air Intake Visit Reasons: TC Irma V/Preventative care/Annual Req. Intake Note: Patient is here to transfer care from to . Patient brought injection molding supervisor forms for the provider to fill out. Patient requesting a physical for the injection molding supervisor form. Mixing Engineer Required: No Accompanied by: Self / Same As Patient Allergies No Known Allergies Allergy (Verified 08/28/23 13:25) Medication List - Last Reconciled 08/28/23 by [facility] No Known Home Meds Tobacco use date assessed: 08/28/23 Dental Screening Dental Screen Date: 08/28/23 Did you have a dental visit in the last 12 months?: No Did you have a dental problem in the last 6 months where you did not have access to dental care?: No Was dental information given to patient?: Patient has dentist HPI HPI Comments History of Present Illness Details 28 y/o F with gallstones & obesity Surgery - none Health Maintenance: Pap Specialists: Gen Surg Here today to est care and for CPE Needs Tdap - will get today, otherwise unsure of vaccine status. Fostering 4 y/o nephew, has been caring for him for 2 years. Irregular periods. Has been ongoing for years. Was on OCP in the past. Denies chance of preg. LMP 2 months ago. [facility] Medical History Gallstones Surgical History No pertinent past surgical history Social History (Updated 08/28/23 @ 13:07 by Nova Garrett CMA) Household Members: Family and Foster Family Household Members Other:: Mom and foster child Housing: Apartment Are you a primary patient care coordinator to a significant other at home: No Do you presently have visiting nurse or other home services: No 75 years or older and lives alone: No Alcohol intake: never Patient Tobacco Use Status: Never used Tobacco e-Cigarette/Vaping Use: Never Used Second Hand Smoke Exposure: No Use of substances other than those prescribed or required for medical reasons: No Have you been hit, kicked, punched, or otherwise hurt by someone within the past year? If so, by whom?: No Do you feel safe in your current relationship?: No Current Relationship Is there a partner from a previous relationship who is making you feel unsafe now?: No Are you made to feel afraid or neglected: No service: No Current occupational status: unemployed and disabled Current occupational exposures/hazards: No Gender identity: Female Cognitive needs: No Hearing needs: No Vision needs: No Questionnaire PHQ-9 Over the last 2 weeks, how often have you been bothered by any of the following problems? 1. Little interest or pleasure in doing things: not at all 2. Feeling down, depressed, or hopeless: not at all 3. Trouble falling or staying asleep, or sleeping too much: not at all 4. Feeling tired or having little energy: not at all 5. Poor appetite or overeating: not at all 6. Feeling bad about yourself - or that you are a failure or have let yourself or your family down: not at all 7. Trouble concentrating on things, such as reading the newspaper or watching television: not at all 8. Moving or speaking so slowly that other people could have noticed. Or the opposite - being so fidgety or restless that you have been moving around a lot more than usual: not at all 9. Thoughts that you would be better off or of hurting yourself in some way: not at all Total score: 0 Depression Screening Interpretation: Negative Depression Screening Done: Yes 95047 - PHQ-9 Billing: Yes Source: Developed by Drs. Tutu Plascencia, Koki Blanca, Austin Hammond and colleagues, with an educational juanis from [employer]. Thrive Questionnaire Date Thrive assessed: 08/28/23 I am a: Patient What is your living situation today?: I have a steady place to live Within the past 12 months, did the food you bought not last and you didn't have the money to get more?: Never true Within the past 12 months, did you worry whether your food would run out before you got money to buy more?: Never true Do you have trouble paying for medicines?: No Do you have trouble getting transportation to medical appointments?: No Do you have trouble paying your heating and electricity bill?: No Do you have trouble taking care of your child, family member or friend?: No Do you have trouble with day-to-day activities such as bathing, preparing meals, shopping, managing finances, etc.?: No Are you currently unemployed and looking for a job?: No Are you interested in more education?: No Please select the resources that you would like help with: None Currently or been in a relationship where the following occur: no concerns reported THRIVE Score: 0 AUDIT C Alcohol Use Questionnaire (AUDIT-C) 1. How often do you have a drink containing alcohol?: Never 3. How often do you have six or more drinks on one occasion?: Never Total Score: 0 Score Reviewed/Action Taken: Yes FRANC-7 AMB Questionnaire FRANC-7 Date FRANC - 7 assessed: 08/28/23 Feeling nervous, anxious, or on edge: 0 = Not at all Not being able to stop or control worryin = Not at all Worrying too much about different things: 0 = Not at all Trouble relaxin = Not at all Being so restless that it is hard to sit still: 0 = Not at all Becoming easily annoyed or irritable: 0 = Not at all Feeling afraid as if something awful might happen: 0 = Not at all Total FRANC-7 score (0-4 normal; 5-9 mild; 10-14 moderate; 15-21 severe): 0 Source: Developed by Drs. Tutu Plascencia, Koki Blanca, Austin Hammond and colleagues, with an educational juanis from [employer]. FRANC-7 Assessment Billing FRANC-7 Assessment Tool: FRANC-7 Assessment 82652 Review of Systems Const Details: Constitutional: Denies fever. Skin: Denies rash. Eye: Denies eye pain. ENMT: Denies sore throat and nasal congestion. Respiratory: Denies shortness of breath and cough. Gastrointestinal: Denies nausea, vomiting or abdominal pain. Cardiovascular: Denies chest pain and syncope. Genitourinary: Denies dysuria. Musculoskeletal: Denies back pain and extremity pain. Neurologic: Denies headaches, confusion, and weakness. Psychiatric: Denies suicidal thoughts and substance abuse. Allergy/ Immunologic: Denies impaired immunity. Physical exam (Primary Care) Vital Signs: Last Vital Signs Temp 98.8 F 08/28/23 13:00 Pulse 97 08/28/23 13:00 Resp 13 08/28/23 13:00 BP 119/67 08/28/23 13:00 Pulse Ox 99 08/28/23 13:00 Oxygen Delivery Method Room Air 08/28/23 13:00 BMI result Body Mass Index 45.2 BMI Assessment/Plan discussion: High BMI High, discussed plan: lifestyle Tobacco/Smoking Status: Tobacco use Status Tobacco use date assessed 08/28/23 08/28/23 13:08 Patient Tobacco Use Status Never used Tobacco 08/28/23 13:07 e-Cigarette/Vaping Use Never Used 08/28/23 13:07 PHQ-9: PHQ-9 Score PHQ-9: Total score 0 08/28/23 13:50 Depression Screening Interpretation: Negative Thrive Assessment: Date of Thrive Assessment Date Thrive assessed 08/28/23 08/28/23 13:09 Currently or been in a relationship where the following occur: no concerns reported Const Other: General: Well developed, well nourished, in no acute distress. Appears stated age. Head: Normocephalic, atraumatic. Eyes: Pupils are equal, round and reactive to light and accommodation. Conjunctivae are clear. Vision grossly normal. Ears: TMs clear AU, EACS WNL Nose: Patent, without discharge. Mouth: There are no ulcers or lesions noted. No inflammation, no post nasal dri p, no plaques nor exudates. Neck: Supple, no adenopathy or thyromegaly. Lungs: Clear to auscultation bilaterally. No rales, rhonchi or wheeze noted. Good air flow in all davis. Heart: Regular rate and rhythm. No murmurs, click, rubs or gallops are noted. Abdomen: Bowel sounds present in all quadrants. The abdomen is soft, nontender, with no masses or organomegaly noted. No hernias are noted. Musculoskeletal: Joints are nontender, without swelling, redness, or effusions. Range of motion is observed to be normal. Pulses: Peripheral pulses are equal and palpable bilaterally. Extremities: No clubbing, cyanosis nor edema is noted. Neurologic: Gait and station normal. Cranial Nerves 2-12 intact. Motor strength grossly symmetrical and intact. No sensory loss. Balance normal. Skin: No rashes, ulcers, or lesions noted. Turgor is good. Skin color is good. Hair and nails are without abnormalities. Psych: Normal eye contact, affect and mood appropriate, and normal interactions . Patient is alert and appropriate to context. Immunizations Boostrix Tdap 2.5 Lf unit-8 mcg-5 Lf/0.5 mL intramuscular syringe Performing Provider: ANGELICA Segovia Performing Location: [facility] Administered by: Nova Garrett CMA on 08/28/23 13:51 Dose Route Admin Location Dispensed Lot Number Expiration Date [employer] 0.5 mL IM Right Deltoid 0.5 mL [id number] 09/07/25 [id number] [employer] VIS Given Date VIS Provided VIS Publication Date 08/28/23 Single Vaccine 20 Eligibility Eligibility Date Funding Source Not [facility] Eligible 08/28/23 Private Assessment and Plan Assessment & Plan (1) Annual physical exam: Code(s): Z00.00 - Encounter for general adult medical examination without abnormal findings (2) Laboratory exam ordered as part of routine general medical examination: Code(s): Z00.00 - Encounter for general adult medical examination without abnormal findings (3) Obesity, morbid, BMI 40.0-49.9: Comment: life style mods encouraged Code(s): E66.01 - Morbid (severe) obesity due to excess calories (4) Cervical cancer screening: Comment: refer to PROJECT DRILLING ENGINEER Reports has never had pap Code(s): Z12.4 - Encounter for screening for malignant neoplasm of cervix (5) Irregular periods: Comment: refer to humanities division chair for further mgmt Code(s): N92.6 - Irregular menstruation, unspecified Orders: Orders Comprehensive Met. Panel Today Z00.00 - Encounter for general adult medical examination without abnormal findings Hemoglobin A1c Today Z00.00 - Encounter for general adult medical examination without abnormal findings LDL Cholesterol Direct Today Z00.00 - Encounter for general adult medical examination without abnormal findings Microalbumin, Random (w Creat) Today Z00.00 - Encounter for general adult medical examination without abnormal findings TSH reflex Free T4 Today Z00.00 - Encounter for general adult medical examination without abnormal findings Hepatitis B Surface Antibody Today Z00.00 - Encounter for general adult medical examination without abnormal findings T Spot TB Today Z00.00 - Encounter for general adult medical examination without abnormal findings TDaP Immunization Today Z23 - Encounter for immunization Vitamin D 1,25 dihydroxy Today Z00.00 - Encounter for general adult medical examination without abnormal findings MMR IgG Measles Mumps Rubella Today Z00.00 - Encounter for general adult me dical examination without abnormal findings Varicella IgG Antibody Today Z00.00 - Encounter for general adult medical examination without abnormal findings Referrals CAN SOLDERER Referral Z12.4 - Encounter for screening for malignant neoplasm of cervix Patient Instructions: Tdap today; titers and labs ordered RTO 1 year, sooner PRN Health screenings for women ages 18 to 39 You should visit your health care provider from time to time, even if you are healthy. The purpose of these visits is to: Screen for medical issues Assess your risk for future medical problems Encourage a healthy lifestyle Update vaccinations and other preventive care services Help you get to know your provider in case of an illness Information Even if you feel fine, you should still see your provider for regular checkups. These visits can help you avoid problems in the future. For example, the only way to find out if you have high blood pressure is to have it checked regularly. High blood sugar and high cholesterol levels also may not have any symptoms in the early stages. A simple blood test can check for these conditions. There are specific times when you should see your provider or receive specific health screenings. The [place] Preventive Services Task Force publishes a list of recommended screenings. Below are screening guidelines for women ages 18 to 39. BLOOD PRESSURE SCREENING Your blood pressure should be checked at least once every 3 to 5 years if: Your blood pressure is in the normal range (top number less than 120 mm Hg and bottom number less than 80 mm Hg) You don't have risk factors for high blood pressure Ask your provider if you need your blood pressure checked more often if: The top number is 120 to 129 mm Hg or the bottom number is 70 to 79 mm Hg You have diabetes, heart disease, kidney problems, are overweight, or have certain other health conditions You have a first-degree relative with high blood pressure You are Black You had high blood pressure during a If the top number is 130 mm Hg or greater or the bottom number is 80 mm Hg or greater, this is considered stage 1 hypertension. Schedule an appointment with your provider to learn how you can reduce your blood pressure. Watch for blood pressure screenings in your area. Ask your provider if you can stop in to have your blood pressure checked. BREAST CANCER SCREENING Experts do not agree about the benefits of breast self-exams in finding breast cancer or saving lives. Talk to your provider about what is best for you. A screening mammogram is not recommended for most women under age 40. Your provider may discuss and recommend mammograms, MRI scans, or ultrasounds if you have an increased risk for breast cancer, such as: A mother or sister who had breast cancer at a young age (most often starting screening earlier than the age the close relative was diagnosed) You carry a high-risk genetic marker CERVICAL CANCER SCREENING Cervical cancer screening should start at age 21 years unless your provider advises otherwise. After the first test: Women ages 21 through 29 should have a Pap test every 3 years. Exoprts do not agree on whether HPV testing is recommended for this age group. Women ages 30 through 65 should be screened with either a Pap test every 3 years or the HPV test every 5 years or both tests every 5 years (called cotesting ). Women who have been treated for precancer (cervical dysplasia) should continue to have Pap tests for 20 years after treatment or until age 65, whichever is longer. If you have had your uterus and cervix removed (total hysterectomy), and you have not been diagnosed with cervical cancer or precancer (high grade cervical neoplasia), you do not need cervical cancer screening. CHOLESTEROL SCREENING Cholesterol screening should begin at: Age 45 for women with no known risk factors for coronary heart disease Age 20 for women with known risk factors for coronary heart disease Repeat cholesterol screening should take place: Every 5 years for women with normal cholesterol levels More often if changes occur in lifestyle (including weight gain and diet) More often if you have diabetes, heart disease, kidney problems, or certain other conditions DIABETES SCREENING You should be screened for diabetes starting at age 35 and then repeated every 3 years if you have no risk factors for diabetes. Screening may need to start earlier and be repeated more often if you have other risk factors for diabetes, such as: You have a first degree relative with diabetes. You are overweight or have obesity. You have high blood pressure, prediabetes, or a history of heart disease. Screening for diabetes should be done if you are planning to become and you are overweight and have other risk factors such as high blood pressure. DENTAL EXAM Go to the dentist once or twice every year for an exam and cleaning. Your dentist will evaluate if you need more frequent visits. EYE EXAM Have an eye exam every 5 to 10 years before age 40. If you have vision problems, have an eye exam every 2 years or more often if recommended by your provider. You should have an eye exam that includes an examination of your retina (back of your eye) at least every year if you have diabetes. IMMUNIZATIONS Commonly needed vaccines include: Flu shot: get one every year. COVID-19 vaccine: ask your provider what is best for you. Tetanus-diphtheria and acellular pertussis (Tdap) vaccine: have one at or after age 19 as one of your tetanus-diphtheria vaccines if you did not receive it as an adolescent. Tetanus-diphtheria: have a booster (or Tdap) every 10 years. Varicella vaccine: receive 2 doses if you never had chickenpox or the varicella vaccine. Hepatitis B vaccine: receive 2, 3, or 4 doses, depending on your exact circumstances. Measles, mumps, and rubella (MMR) vaccine: receive 1 to 2 doses if you are not already immune to MMR. Your provider can tell you if you are immune. Ask your provider about the human papillomavirus (HPV) vaccine if: You have not received the HPV vaccine in the past You have not completed the full vaccine series (you should catch up on this shot) Ask your provider if you should receive other immunizations if you have certain health problems that increase your risk for some diseases such as pneumonia. INFECTIOUS DISEASE SCREENING Women who are sexually active should be screened for chlamydia and gonorrhea up until age 25. Women 25 years and older should be screened for chlamydia and gonorrhea if at high risk. Screening for hepatitis C: All adults ages 18 to 79 should get a one-time test for hepatitis C. people should be screened at every . Screening for human immunodeficiency virus (HIV): All people ages 15 to 65 should get a one-time test for HIV. Depending on your lifestyle and medical history, you may also need to be screened for infections such as syphilis and HIV, as well as other infections. PHYSICAL EXAM All adults should visit their provider from time to time, even if they are healthy. The purpose of these visits is to: Screen for disease Assess your risk of future medical problems Encourage a healthy lifestyle Update your vaccinations and other preventive care services Maintain a relationship with a provider in case of an illness Your height, weight, and BMI should be checked at every exam. During your exam, your provider may ask you about: Depression and anxiety Diet and exercise Alcohol and tobacco use Safety issues, such as using seat belts, smoke detectors, and intimate partner violence Your medicines and risk for interactions SKIN SELF-EXAM Your provider may check your skin for signs of skin cancer, especially if you're at high risk, such as if you: Have had skin cancer before Have close relatives with skin cancer Have a weakened immune system OTHER SCREENING Talk with your provider about colon cancer screening if you have a strong family history of colon cancer or polyps, or if you have had inflammatory bowel disease or polyps yourself. Routine bone density screening of women under 40 is not recommended. Coding Level of Care Code Est Pt Prev Care 18-39y(98379) Diagnoses Annual physical exam Z00.00 Laboratory exam ordered as part of routine general medical examination Z00.00 Obesity, morbid, BMI 40.0-49.9 E66.01 Cervical cancer screening Z12.4 Irregular periods N92.6 Additional Codes FRANC-7 Assessment Billing - FRANC-7 Assessment Tool: FRANC-7 Assessment [id number] ([id number])
[2023-08-28 13:00] VITALS: BP 119/67; PULSE 97; RESP 13; TEMP 37.1; O2SAT 99; BMI 45.2
== END 2023-08-28 13:50 | disposition home or self-care (01) ==
PROVIDERS: PCP Hospitalist; Visit Provider Nurse Practitioner Family
DX: Z00.00 Encounter for general adult medical examination without abnormal findings (principal); E66.01 Morbid (severe) obesity due to excess calories; Z68.42 Body mass index [BMI] 45.0-49.9, adult; Z23 Encounter for immunization; N92.6 Irregular menstruation, unspecified
CPT/HCPCS: 90471; 90715; 99395

== ENCOUNTER 2023-10-08 09:28 | Outpatient (REF) | payer OTHER, SELFPAY ==
[2023-10-09 05:36] LABS: CT PCR NOT DETECTED (Not Detect.); NG PCR NOT DETECTED (Not Detect.)
[2023-10-09 10:50] LABS: Bacterial Vaginosis PCR NEGATIVE (Negative); Candida Group PCR NOT DETECTED (Not Detect); Candida glab krusei PCR NOT DETECTED (Not Detect); Trichomonas vaginalis PCR NOT DETECTED (Not Detect)
== END 2023-10-08 09:29 | disposition home or self-care (01) ==
LOC: HO.LAB 09:28
PROVIDERS: PCP Hospitalist; Visit Provider Advanced Practice Midwife
DX: Z01.419 Encounter for gynecological examination (general) (routine) without abnormal findings (principal); N92.6 Irregular menstruation, unspecified; E66.01 Morbid (severe) obesity due to excess calories
CPT/HCPCS: 0352U; 0353U; 88142; 99385

== ENCOUNTER 2023-10-08 09:28 | Outpatient (AMB) | payer OTHER, SELFPAY ==
--- NOTE | 2023-10-08 09:32 | A.OFFVIS_ITS ---
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 She says she has never had a senior lead java developer exam ever she has never had sex she is here with her nephew who she fosters and is process of adopting. He is 5 years old. She says she met provider recently and did not remember her name but that person further here she said that she has always been overweight and she lost a little weight last year but then started even out with her friends again and so has gained weight again. She has gallbladder problems so that is what made her lose weight the 1st time but then she went back to her regular eating habits she is trying to eat things like broccoli more. She has been trying to eat less as in perhaps eating half a sandwich instead whole sandwhich. She was going to school but had to leave school because there were lots of different appointments involved with the foster mom and lots of home visits all the time so she could not keep up with it for the same reason she has not been able to go to the gym. She says she gets irregular periods sometimes it will skip a month or 2. She was on control pills years ago to help make her periods regular. But she got tired of taking pills all the time so she just stopped them. She did not have any negative side effects to them. She has not sexually active and has never been. [facility] Medical History Gallstones Surgical History No pertinent past surgical history Social History Household Members: Family and Foster Family Household Members Other:: Mom and foster child Housing: Apartment Are you a primary health care specialist to a significant other at home: No Do you presently have visiting nurse or other home services: No 75 years or older and lives alone: No Alcohol intake: never Patient Tobacco Use Status: Never used Tobacco e-Cigarette/Vaping Use: Never Used Second Hand Smoke Exposure: No service: No Current occupational status: unemployed and disabled Current occupational exposures/hazards: No Gender identity: Female Cognitive needs: No Hearing needs: No Vision needs: No Female Reproductive History Menstrual Age of Menarche: 15 Duration of menses: <3 days Date of last menstrual period: 09/28/23 control method: none Total pregnancies: 0 History of abnormal pap smear: No (no previous pap) Physical Exam Vital Signs: Last Vital Signs BP 116/68 10/08/23 09:36 BMI result Body Mass Index 45.2 Const Other: Patient has multiple folliculitis scars in various stages of healing and scarring she says sometimes they are itchy and she scratches them they are scattered around adipose tissue around breasts abdomen upper thighs and especially mons pubis where she has shaved in past. General: healthy appearing, comfortable, no acute distress, well developed and alert Nutritional Appearance: average body habitus and obese Orientation/consciousness: patient oriented x3 Limitations: no limitations HEENT Head: Yes normocephalic Neck Neck: Yes normal visual inspection Thyroid: Thyroid normal Chest Chest palpation & inspection: normal inspection of the chest Breast/axilla inspection: normal inspection of the breasts and normal inspection of the axillae Breast/axilla palpation: normal palpation of the breasts and normal palpation of the axillae Resp Effort & Inspection: normal respiratory effort GI Inspection: Yes normal to inspection, No Abdominal wall edema and No distended Palpation (GI): Soft to palpation and nontender Other: External exam multiple folliculitis lesions in various stages of inflammation and healing and many are scabbed over. Vagina pink and moist there is a scant discharge consistent with trailing end of menses. Cervix was friable with touch of a Q-tip and Cytobrush. Cervix otherwise long close thick mobile nontender uterus difficult to palpate secondary to adipose good tone Kegel. General: Yes bladder normal to palpation External Female Exam: normal external appearance and normal appearance of the urethra Speculum Exam - Vagina: normal appearance of the vagina, normal palpation and normal vaginal discharge Speculum Exam - Cervix: normal appearance of the cervix, normal palpation and nontender Bimanual exam- vagina & uterus: normal bimanual exam, normal palpation, uterine size normal, bladder normal to palpation, consistency normal, normal palpation, uterine mobility normal, uterine shape normal, No Cervical tenderness present, non-tender and no cervical motion tenderness Bimanual Exam- Adnexa, other: normal adnexae, no masses, normal and No adnexal tenderness Neuro General: patient oriented x3 Assessment & Plan Assessment & Plan (1) Irregular periods: Comment: refer to stainless steel finisher for further mgmt ;10/08/23- will trial OCPs, and lengthy discussion about weight loss, follow-up visit. Code(s): N92.6 - Irregular menstruation, unspecified Category: Medical (2) Obesity, morbid, BMI 40.0-49.9: Comment: life style mods encouraged Code(s): E66.01 - Morbid (severe) obesity due to excess calories Category: Medical (3) Cervical cancer screening: Comment: refer to MAINTENANCE AND UTILITIES SUPERVISOR Reports has never had pap Code(s): Z12.4 - Encounter for screening for malignant neoplasm of cervix Category: Medical (4) Encounter for gynecological examination with Papanicolaou smear of cervix: Code(s): Z01.419 - Encounter for gynecological examination (general) (routine) without ab normal findings Category: Medical Plan -----Discussed in this visit the following: healthy balanced diet, regular and consistent exercise, getting recommended health screens, doing the best she can for her particular health concerns, kegel exercises, pap smear screening and followup recommendations, mammography screening and SBE, normal changes in cycles in her life stage--- . ---Discussed PCOS in general and specifically about the interplay of the abnormal hormonal milieu related to being overweight, with the elevations of many hormone levels, including testosterone and estrogen, as well as others that contribute to cycles that are anovulatory and therefore prolonged, and when periods do come they come very heavy, and can contribute to lots of cramping, with passage of clots and anemia. Discussed the common symptoms related to the elvated hormonal levels, including increased facial hair, male pattern hair thinning, acne, and increased central abdominal girth. Discussed the role of weight loss as the primary, most important, and most likely to succeed, intervention, in achieving healthier status as regards PCOS, and ovulatory regular cycles. Additionally the very important relationship to elevated insulin levels, and blood sugars, and high risk of pre diabetes, progressing to diabetes as well as other metabolic syndromes related to this was discussed. Also discussed common interventions for some of the above, including if appropriate, use of oral contraceptives, She was on control pills to help regulate her periods past and though she has not fond of the idea being on medication she is willing to go back on them again discussed that it has not a great idea to have consistent irregular menses such that she would go 3 months menses so will attempt trial of OCPs discussed risks and side effects of taking OCPs oozing thromboembolic events and also in her case possible gallbladder exacerbation though it would be difficult to stay what be the cause when there is dietary contribution.. ---Discussed with pt, her wt, and BMI, and her goals. Discussed ideal dietary guidelines to assist in weight loss, focusing on vegetables and fruits and lean proteins, and minimizing fats and carbohydrates and eliminating empty calories. Discussed exercise, including regular, sufficient, and consistent cardio based exercise, and weight bearing exercise. Discussed barriers to exercise and healthy eating, and possible ways of establishing newer healthier habits. Discussed supports to help in her efforts, and timing issues. Discussed adequate sleep, and ways to achieve this. Discussed adequate water intake.-- I gave her some handouts that I had on Mediterranean and latin heritage diet emphasizing verbally need for vegetables and minimizing carbs adequate protein intake water and avoiding highly processed foods and high-calorie foods. Also discussed the need for systematic exercise brisk walking not necessarily walking piece of a 6-year-old. She will be getting all fasting lab work ordered by her primary and I urged follow-up with her as well I also gave her a BMI chart and showed her roughly where she was though it was in fact off the chart that I had( BMI 45). I offered putting a referral for nutrition, but she declined it for now, since she wants to work on it herself. I suggested looking things up on the web as well considering the sources so she is getting good information. Strongly suggest that this is a good time in her life to work on getting healthier, before other diseases and negative effects obesity are evident. Orders: Orders Bacterial Vaginosis Panel Today N92.6 - Irregular menstruation, unspecified CT NG by PCR Today N92.6 - Irregular menstruation, unspecified Pap Smear Today Z12.4 - Encounter for screening for malignant neoplasm of cervix Medications: New desog-e.estradiol/e.estradiol 0.15-0.02 mgx21 /0.01 mg x 5 1 tab PO DAILY 84 tabs 1RF Coding Level of Care Code New Pt Prev Care 18-39yr([id number] Diagnoses Irregular periods N92.6 Obesity, morbid, BMI 40.0-49.9 E66.01 Cervical cancer screening Z12.4 Encounter for gynecological examination with Papanicolaou smear of cervix Z01.419
[2023-10-08 09:36] VITALS: BP 116/68; BMI 45.2
== END 2023-10-08 11:03 | disposition home or self-care (01) ==
PROVIDERS: PCP Hospitalist; Visit Provider Advanced Practice Midwife
DX: Z01.419 Encounter for gynecological examination (general) (routine) without abnormal findings (principal); N92.6 Irregular menstruation, unspecified; E66.01 Morbid (severe) obesity due to excess calories
CPT/HCPCS: 99385

== ENCOUNTER 2025-04-24 15:13 | Inpatient (IN) | payer OTHER, SELFPAY ==
--- NOTE | ~2025-04-24 | CT_ITS ---
CLINICAL HISTORY: ?cbd obstruction CT abdomen and pelvis with contrast Comparison: None provided Findings: LIMITED CHEST: Lung bases are clear. LIVER: No focal liver lesion. BILIARY: Cholelithiasis with distention of the gallbladder wall and a 3 mm stone in the distal common bile duct (series 3, image 275). PANCREAS: No mass or ductal dilatation. SPLEEN: No splenomegaly. KIDNEYS: Nonobstructive left nephrolithiasis measuring up to 4 mm in the left lower pole. No hydronephrosis. ADRENALS: No nodule. VASCULAR: No aneurysm. RETROPERITONEUM: No lymphadenopathy or mass. BOWEL/MESENTERY: No evidence of obstruction. No free fluid or air. Normal appendix. ABDOMINAL WALL: No mass or significant abnormality. URINARY BLADDER: No focal wall thickening. PELVIC NODES: No pelvic lymphadenopathy. PELVIC ORGANS: Normal for age. BONES: No acute fracture. OTHER: Negative. IMPRESSION: Findings suggest acute cholecystitis with a 3 mm stone in the distal common bile duct. Nonobstructive left nephrolithiasis without hydronephrosis. This document has been electronically signed by: Mervat Blanco MD on 04/24/2025 21:12:44
--- NOTE | ~2025-04-24 | MR_ITS ---
EXAMINATION: MRCP HISTORY: Gallstones with abnormal LFT's and CT of bile duct COMPARISON: Correlation is made with a CT of the abdomen with contrast dated 04/24/2025. TECHNIQUE: Axial gradient echo in and out of phase T1, axial T2 and fat suppressed T2, and coronal haste T2 with fat saturation images were obtained through the abdomen. 3D MRCP Reconstructed images and thick slab imaging of the biliary tree were obtained. FINDINGS: There is diffuse loss of signal intensity within the liver on opposed phase imaging, consistent with steatosis. There is mild dilatation of intrahepatic biliary radicles in the left lobe. There is cholelithiasis. There is a small amount of pericholecystic fluid. The common bile duct is normal in caliber. There is a 5 mm hypointense calculus at the ampulla. The spleen, pancreas, adrenals, and kidneys are unremarkable. There are prominent periportal lymph nodes measuring up to 13 mm in short axis dimension. No ascites is identified in the upper abdomen. The visualized bones demonstrate normal marrow signal intensity. MR/MR MRCP IMPRESSION: 1. Cholelithiasis and a small amount of pericholecystic fluid. Prior right upper quadrant ultrasound demonstrated a positive sonographic Coronado sign, compatible with acute cholecystitis. 2. 5 mm calculus within the common bile duct at the ampulla. 3. Hepatic steatosis. Electronically signed by: Tutu Burden MD 04/26/2025 01:[address] [facility]
--- NOTE | ~2025-04-24 | US_ITS ---
CLINICAL HISTORY: ?Acute miroslava US abdomen limited Comparison: None provided Findings: The visualized pancreas is normal. The liver is mildly echogenic and measures 14.7 cm. There is no intrahepatic bile duct dilatation. The common duct is 5 mm in diameter. Cholelithiasis with an 8 mm gallstone at the gallbladder neck. Gallbladder wall measures 2 mm. There is sonographic Coronado sign. The right kidney is 9.5 cm in length. No ascites. IMPRESSION: Cholelithiasis with an 8 mm gallstone at the gallbladder neck. Positive Coronado's sign. This document has been electronically signed by: Mervat Blanco MD on 04/24/2025 19:25:33
--- NOTE | ~2025-04-24 | FL_ITS ---
EXAMINATION: FL GUIDANCE ONLY HISTORY: ERCP COMPARISON: Correlation is made with MRCP dated 04/26/2025. TECHNIQUE: Fluoroscopy time: 3 minutes, 3 seconds. Cumulative Dose: 9 1.20 mGy. DAP: 29570.00 mGycm2 Images: 18. FINDINGS: Fluoroscopic spot films from an ERCP demonstrate opacification of a normal caliber common bile duct. There is a filling defect noted, consistent with the calculus noted on MRCP. A balloon sweep of the common bile duct was performed with subsequent flow of contrast into the duodenum and resolution of the previously seen filling defect. FL/FL guidance in OR IMPRESSION: Fluoroscopy during procedure. Please see procedure report for additional information. Electronically signed by: Tutu Burden MD 04/27/2025 07:48 AM EST
[2025-04-24 16:22] VITALS: BP 126/75; PULSE 90; RESP 18; TEMP 36.2; O2SAT 97; BMI 46.2
--- NOTE | 2025-04-24 16:30 | ED_ITS ---
HPI - Abdominal Pain General Chief Complaint: Abdominal Pain Stated Complaint: Gull bladder pain Time Seen by Provider: 04/24/25 17:52 History of Present Illness ED Provider: Radha Cherry NP HPI narrative: 30-year-old female medical history significant for cholelithiasis, causing symptoms several years prior but opted for no surgical intervention at this time, presents to the ED for evaluation reporting I have gallbladder pain. Patient reports the pain is located in the right upper quadrant, with radiation to the right back, but no radiation to the shoulder. Endorsing several episodes of nausea and vomiting, nonbloody. Denies diarrhea or constipation. Endorsing subjective fever without chills. No chest pain or pressure, shortness of breath. Denies urinary complaints, chance of . Related Data Previous Rx's ?Medication ?Instructions ?Recorded desogestrel-e.estradiol 0.15 1 tab PO DAILY #84 tabs 0 10/08/23 mg-0.02 mg(21)/e.estrad 0.01 mg(5) tablet Allergies Allergy/AdvReac Type Severity Reaction Status Date / Time No Known Allergies Allergy Verified 04/24/25 16:23 Review of Systems Review of Systems ROS is otherwise negative unless mentioned in HPI. [facility] Past Medical History Medical History Gallstones Surgical History No pertinent past surgical history Social History Social History Household Members: Family and Foster Family Household Members Other:: Mom and foster child Housing: Apartment Are you a primary child caregiver to a significant other at home: No Do you presently have visiting nurse or other home services: No Alcohol intake: never Patient Tobacco Use Status: Never used Tobacco Smoked in Last 30 Days: No e-Cigarette/Vaping Use: Never Used Second Hand Smoke Exposure: No Use of substances other than those prescribed or required for medical reasons: No Advance Directives: No Advance Directives Information Provided: No Do you have a plan to hurt others: No Plan Patient : No service: No Current occupational status: unemployed and disabled Current occupational exposures/hazards: No Gender identity: Female Cognitive needs: No Hearing needs: No Vision needs: No Physical Exam ED Exam Exam: Nursing notes and vital signs reviewed. Constitutional: Well-appearing, NAD. Alert. Oriented X3. Eyes: EOMI. ENT: Pharynx normal. Neck: Normal inspection. Neck supple. CVS: Normal heart rate and rhythm. Pulses normal. Respiratory: No respiratory distress. Breath sounds normal. Abdomen: Soft, nondistended, tenderness to the right upper quadrant of the abdomen. No CVA tenderness bilaterally. Skin: Skin warm and dry. Normal skin color. Extremities: No lower extremity edema. Neuro: Oriented X 3. No motor deficit. Vital Signs: Vital Signs - 24 hr 04/24/25 16:22 04/24/25 17:48 Temperature 97.1 F 98.2 F Pulse Rate 90 84 Respiratory Rate 18 16 Blood Pressure 126/75 108/70 Pulse Oximetry 97 95 Oxygen Delivery Method Room Air Room Air BMI result Body Mass Index 46.2 Course Course Course Narrative: Annelise Collazo SPINNER FRAME 04/24 1630 this is a rapid medical exam. Defer additional HPI, ROS and PE to primary provider. 30-year-old female with a history of gallstones presents the emergency room with complaints of right abdominal pain, nausea, vomiting and chills. Will obtain labs, UA VSS 9:39 PM 04/24/2025 (Airam Douglas DO): Patient was signed out to me pending CT imaging CT imaging shows signs of cholecystitis and 3 mm stone in the CBD. Discussed the case with the Dr. Hatch General Surgeon. He will plan to admit the patient. Medical Decision Making Medical Decision Making [facility] Narrative: Upon my initial assessment of this patient, she has lab work that has returned she was seen by the triage provider. She has an elevated bilirubin at 1.7, her AST and ALT are in the 200s, alk-phos is also high. Her viral panel is negative. Lipase is flat. Concerning for acute cholecystitis, though there was no leukocytosis. Plan to add on PT INR, CRP with concern for possible cholangitis though less likely. We will obtain a right upper quadrant ultrasound and reassess after antiemetic, pain control, fluids. 6:40 PM-- UA + Nitrites. Added on Rocephin for IV antibiotic coverage. 7:32 PM--ultrasound report reveals evidence of cholelithiasis with an 8 mm gallstone in the gallbladder neck, with positive sonographic Coronado's sign. I spoke with on-call general surgeon Dr. Hatch, who recommend CT scanning given the bilirubin is elevated as well as LFTs being abnormal, with concern for underlying CBD obstruction. I have ordered the study. Patient agreeable with this plan. 8:55 PM-- to my preliminary interpretation of the CT abdomen and pelvis there does appear to be some pericholecystic fluid. I have added on Flagyl for full antibiotic coverage. Pending official read. I did notify Dr. Hatch the official read is currently pending. Discussed with Dr Douglas. Differential Diagnosis Differential Diagnoses: The differential diagnosis associated with the presentation includes Cholecystitis, choledocholithiasis, cholangitis, pancreatitis or Admission/Observation Consideration of admission/observation: Escalation of care including admission/observation considered Lab Data MDM Lab Attestation statement: I reviewed the patient's lab results. (Elevated LFTs, no leukocytosis. Elevated bilirubin concerning for obstruction.) 04/24/25 16:55 04/24/25 16:55 Labs: Lab Results 04/24/25 04/24/25 04/24/25 Range/Units 16:55 18:18 18:19 WBC 8.4 (4.8-10.8) X10*3/uL RBC 4.67 (4.20-5.50) X10*6/uL Hgb 12.7 (12.0-16.0) g/dl Hct 39.2 (37.0-47.0) % MCV 83.9 (80.0-98.0) fL MCH 27.2 (27.0-33.0) pg MCHC 32.4 (31.0-35.0) g/dl RDW 14.0 (11.0-16.0) % Plt Count 575 H D (160-400) X10*3/uL MPV 9.0 L (9.4-12.3) fL Immature Gran % (Auto) 0.4 (0.0-0.4) % Neut % (Auto) 59.5 (45-73) % Lymph % (Auto) 29.2 (20-40) % [place] % (Auto) 8.6 (2-11) % Eos % (Auto) 1.8 (0-4) % Baso % (Auto) 0.5 (0-2) % Lymph # (Auto) 2.4 (1.2-4.9) X10*3/uL [place] # (Auto) 0.7 (0.1-1.2) X10*3/uL Eos # (Auto) 0.2 (0.0-0.4) X10*3/uL Baso # (Auto) 0.0 (0.0-0.2) X10*3/uL Abs Immat Gran (auto) 0.03 (0.00-0.03) X10*3/uL Absolute Neuts (auto) 5.0 (2.0-8.3) x10*3/uL Absolute Nucleated RBC 0.000 (0.0-0.012) X10*3/uL Nucleated RBC % (auto) 0.0 (0.0-0.2) /100WBC PT 14.8 H (11.2-13.5) SEC INR 1.2 H (0.9-1.1) Sodium 142 (135-145) mmol/L Potassium 3.4 (3.3-5.1) mmol/L Chloride 108 (96-108) mmol/L Carbon Dioxide 25 (22-29) mmol/L Anion Gap 12 (12-20) BUN 8 L (9-16) mg/dL Creatinine 0.67 (0.5-1.4) mg/dL Estim Creat Clear Calc 148.3 Estimated GFR > 60 Random Glucose 120 H (60-115) mg/dL Calcium 9.2 (8.4-10.2) mg/dL Total Bilirubin 1.7 H (0.0-1.0) mg/dL Direct Bilirubin 1.2 H (0.0-0.5) mg/dL AST 221 H (5-31) U/L ALT 290 H (0-31) U/L Alkaline Phosphatase 141 H (39-117) U/L Total Protein 8.1 H (6.5-8.0) g/dL Albumin 4.1 (3.5-5.0) g/dL Lipase 16 (8-78) U/L Urine Color Dark Yellow Urine Appearance Clear Urine pH 5.0 (5.0-9.0) Ur Specific [place] >= 1.030 H (1.005-1.025) Urine Protein Trace (Neg-Trace) mg/dL Urine Glucose (UA) Negative (Negative) mg/dL Urine Ketones Trace (Negative) mg/dL Urine Blood Moderate (2+) H (Negative) Urine Nitrite Positive H (Negative) Ur Leukocyte Esterase Trace H (Negative) Urine RBC 11-20 H (0-2) /HPF Urine WBC 0-5 (0-5) /HPF Ur Squamous Epith Cells 3-5 (0-2) /HPF Urine Bacteria Trace (None Seen) Hyaline Casts 3-5 (0-2) /LPF Urine Test NEGATIVE (NEGATIVE) Influenza Type A (PCR) NEGATIVE (Negative) Influenza Type B (PCR) NEGATIVE (Negative) RSV RNA Qual (PCR) NEGATIVE (Negative) SARS-CoV-2 RNA (RT-PCR) NEGATIVE (Negative) Independent Interpretation I performed an independent interpretation of an: Ultrasound Interpretation: I have reviewed the patient's imaging and agree with the radiologist's findings. Radiology Impression Discussion of test interpretation with radiology: I have reviewed the radiologist's reading. Radiologist Impression: IMPRESSION: Cholelithiasis with an 8 mm gallstone at the gallbladder neck. Positive Coronado's sign. Independent Historian Clinical information obtained from an independent historian. History obtained from or confirmed by: Parent External Record Review External record reviewed: Outpatient record, Prior outpatient labs and Outside ED record Chronic Conditions Patient?s care impacted by: Other (Cholelithiases) Social Determinants Patient?s care significantly limited by Social Determinants of Health including: Problems related to primary support group Medications Administered Generic Name Dose Route Start Last Admin Trade Name Freq PRN Reason Stop Dose Admin Metronidazole 500 mg in 100 mls @ 100 mls/hr 04/24/25 20:55 04/24/25 21:24 Flagyl IV 04/24/25 21:54 100 mls/hr ONCE ONE Administration Discontinued Medications Generic Name Dose Route Start Last Admin Trade Name Freq PRN Reason Stop Dose Admin Sodium Chloride 1,000 mls @ 999 mls/hr 04/24/25 17:54 04/24/25 19:25 Ns IV 04/24/25 18:54 Infused .Q1H1M ONE Infusion Ceftriaxone Sodium 1 gm/ 50 mls @ 100 mls/hr 04/24/25 18:42 04/24/25 20:03 Sodium Chloride IV 04/24/25 19:11 Infused ONCE ONE Infusion Iohexol 100 ml 04/24/25 20:11 04/24/25 20:11 Iohexol 350 Mg/Ml 100 Ml Infus..Btl IV 04/24/25 20:12 100 ml ONCE ONE Administration Morphine Sulfate 4 mg 04/24/25 17:54 04/24/25 18:26 Morphine Sulfate 4 Mg/Ml Cartridge IVPUSH 04/24/25 17:55 4 mg ONCE ONE Administration Protocol Ondansetron HCl 4 mg 04/24/25 17:54 04/24/25 18:26 Ondansetron Hcl 4 Mg/2 Ml Vial IVPUSH 04/24/25 17:55 4 mg ONCE ONE Administration Critical Care Time Critical Care Time Critical Care Time: Yes Total Critical Care Time: 40 Attestation: Time is exclusive of separately billable procedures. Time includes: direct patient care, patient reassessment, coordination of patient care, interpretation of data (laboratory data, pulse oximetry, arterial blood gases and chest xrays), review of patient's medical records, medical consultation and documentation of patient care. Procedures excluded from critical care time: central intravenous line placement and electrocardiography. Discharge Plan Discharge Clinical Impression: Acute cholecystitis Patient Disposition: Admitted As Inpatient Print Language: Bolivian
[2025-04-24 17:05] LABS: MANUAL DIFF FLAG NO
[2025-04-24 17:11] LABS: Hematocrit 39.2 % (37.0-47.0); Hemoglobin 12.7 g/dl (12.0-16.0); Imm Gran Abs Auto 0.03 X10*3/uL (0.00-0.03); Imm Gran Pct Auto 0.4 % (0.0-0.4); Lymphocytes Absolute Auto 2.4 X10*3/uL (1.2-4.9); Mean Corpuscular HGB Conc 32.4 g/dl (31.0-35.0); Mean Corpuscular Hemoglobin 27.2 pg (27.0-33.0); Mean Corpuscular Volume 83.9 fL (80.0-98.0); NRBC Abs Auto 0.000 X10*3/uL (0.0-0.012); NRBC Pct Auto 0.0 /100WBC (0.0-0.2); Platelet Count 575 X10*3/uL (160-400); Red Blood Count 4.67 X10*6/uL (4.20-5.50); White Blood Count 8.4 X10*3/uL (4.8-10.8)
[2025-04-24 17:27] LABS: Alanine Aminotransferase 290 U/L (0-31); Albumin Level 4.1 g/dL (3.5-5.0); Alkaline Phosphatase 141 U/L (39-117); Anion Gap 12 (12-20); Aspartate Amino Transferase 221 U/L (5-31); Blood Urea Nitrogen 8 mg/dL (9-16); Calcium 9.2 mg/dL (8.4-10.2); Carbon Dioxide 25 mmol/L (22-29); Chloride 108 mmol/L (96-108); Creatinine Clr Calc Pharmacy 148.3; Estimated Glomerular Filt Rate > 60; Lipase 16 U/L (8-78); Potassium 3.4 mmol/L (3.3-5.1); Sodium 142 mmol/L (135-145); Total Protein 8.1 g/dL (6.5-8.0)
--- OUTSIDE RECORDS SUMMARY | 2025-04-24 17:46 | XMS_ITS | Clinical Summary ---
Author Organization [facility] Address [address] [place] [address] Care Team Providers Care Solutions Consultant Name Role Phone Unavailable Primary Care Provider Unavailabl e Social History Tobacco Use Types Packs/Day Years Used Date Smoking Tobacco: Never Assessed Comments Unknown Sex and Gender Information Value Date Recorded Sex Assigned at Not on file Legal Sex Female 9:03 AM EST Gender Identity Not on file Sexual Orientation Not on file Plan of Treatment Health Maintenance Due Date Last Done Comments DTaP,Tdap,and Td Vaccines (1 - Tdap) 02/09/2015 Hepatitis B Vaccines (1 of 3 - 19+ 3-dose series) 02/09/2015 Cervical Cancer Screening: P ap Smear 02/09/2017 HPV Vaccines (1 - 3-dose SCD M series) 02/09/2023 Depression Screening 05/06/2024 COVID-19 Vaccine ( - 2024-2 6 season) 2025 Influenza Vaccine (#1) 2025 RSV Immunization Adult Patie nts (1 - 1-dose 75+ series) 02/09/2071 HIB Vaccines Aged Out No longer eligi ble based on patient's age to complete this topic Hepatitis A Vaccines Aged Out No long er eligible based on patient's age to complete this topic IPV Vaccines Aged Out No longer eligi ble based on patient's age to complete this topic MMR Vaccines Aged Out No longer eligi ble based on patient's age to complete this topic Meningococcal ACWY Vaccine Aged Out N o longer eligible based on patient's age to complete this topic Meningococcal B Vaccine Aged Out No l onger eligible based on patient's age to complete this topic Pneumococcal Vaccine: Pediat rics (0 to 5 Years) and At-Risk Patients (6 to 49 Years) Aged Out No longer eligible b ased on patient's age to complete this topic RSV Immunization Patients Un maribel 20 months Aged Out No longer eligible b ased on patient's age to complete this topic Varicella Vaccines Aged Out No longer eligible based on patient's age to complete this topic
--- OUTSIDE RECORDS SUMMARY | 2025-04-24 17:46 | XMS_ITS | Encounter Summary ---
Author Organization [facility] Address [address] [place] [phone] Phone Care Team Providers Care Vice President Global Advertising Sales Name Role Phone Cara Duvall MD Primary Care Provider Encounter Details Date Type Department Care Team (Late st Contact Info) Description 03/01/2015 Documentation [facility] Family Medicine [address] [place] [address] Family Medicine, Physician [address] [place], [place] [id number] Social History Tobacco Use Types Packs/Day Years Used Date Smoking Tobacco: Never Assessed Comments Unknown Sex and Gender Information Value Date Recorded Sex Assigned at Not on file Legal Sex Female 5:03 PM EDT Gender Identity Not on file Sexual Orientation Not on file documented as of this encounter Plan of Treatment Not on file documented as of this encounter Visit Diagnoses Not on filedocumented in this encounter Care Teams Vice President Global Advertising Sales Relationship Specialty Start Date End Date Cara Duvall MD [address] [facility] [place] [id number] PCP - General 12/14/16 10/31/22 documented as of this encounter
--- OUTSIDE RECORDS SUMMARY | 2025-04-24 17:46 | XMS_ITS | Encounter Summary ---
Author Organization [facility] Address [address] [place] [phone] Phone Care Team Providers Care Preparation Room Worker Name Role Phone Cara Duvall MD Primary Care Provider [phone] Encounter Details Date Type Department Care Team (Late st Contact Info) Description 07/30/2016 Documentation [facility] [place] Family Medicine [address] [place] [address] Family Medicine, Physician [address] [place], [place] [phone] Social History Tobacco Use Types Packs/Day Years [...] on filedocumented in this encounter Care Teams Preparation Room Worker Relationship Specialty Start Date End Date Cara Duvall MD [address] [place] [address] [place] [id number] PCP - General 12/14/16 10/31/22 documented as of this encounter
--- OUTSIDE RECORDS SUMMARY | 2025-04-24 17:46 | XMS_ITS | Encounter Summary ---
Author Organization [facility] Address [address] [place] [address] Phone Care Team Providers Care Box Lidder Name Role Phone Cara Duvall MD Primary Care Provider Encounter Details Date Type Department Care Team (Late st Contact Info) Description 08/12/2009 Documentation [facility] [place] Family Medicine [address] [place] [address] Family Medicine, Physician [address] [place], [place] [phone] Social History Tobacco Use Types Packs/Day Years [...] on filedocumented in this encounter Care Teams Box Lidder Relationship Specialty Start Date End Date Cara Duvall MD [address] [facility] [place] [address] PCP - General 12/14/16 10/31/22 documented as of this encounter
--- OUTSIDE RECORDS SUMMARY | 2025-04-24 17:47 | XMS_ITS | Encounter Summary ---
Author Organization [facility] Address [address] [place] [address] Phone Care Team Providers Care Business Support Professional Name Role Phone Cara Duvall MD Primary Care Provider Encounter Details Date Type Department Care Team (Late st Contact Info) Description 07/04/2015 Documentation [facility] [place] Family Medicine [address] [place] [address] Family Medicine, Physician [address] [place], [place] [phone] Social History Tobacco Use Types Packs/Day Years [...] on filedocumented in this encounter Care Teams Business Support Professional Relationship Specialty Start Date End Date Cara Duvall MD [address] [facility] [place] [address] PCP - General 12/14/16 10/31/22 documented as of this encounter
--- OUTSIDE RECORDS SUMMARY | 2025-04-24 17:47 | XMS_ITS | Encounter Summary ---
Author Organization [facility] Address [address] [place] [phone] Phone Care Team Providers Care Flux Core Welder Name Role Phone Cara Duvall MD Primary Care Provider Encounter Details Date Type Department Care Team (Late st Contact Info) Description 12/20/2016 Conversion Encounter [facility] [place] [address] [place] [address] Social History Tobacco Use Types Packs/Day Years [...] on filedocumented in this encounter Care Teams Flux Core Welder Relationship Specialty Start Date End Date Cara Duvall MD [address] [place] [address] PCP - General 12/14/16 10/31/22 documented as of this encounter
--- OUTSIDE RECORDS SUMMARY | 2025-04-24 17:47 | XMS_ITS | Clinical Summary ---
Author Organization [facility] Address [address] [place] [address] Phone Care Team Providers Care Drop Wire Stringer Name Role Phone Unavailable Primary Care Provider Unavailabl e Immunizations Immunization Administration Dates Next Due DTaP 5 09/25/2000, 8,06/15/1997, 997,1996 H1N1 03/30/2009 HPV, Quadrivalent 02/08/2010 Hep B, ped/adol 04/15/1997,1996,1996 Hib (PRP-T) 06/15/1997,04/15/1997,1996 IPV 09/25/2000,1996 Influenza, intranasal, trivalent 02/08/2010 MMR 09/25/2000,04/15/1997 Meningococcal Conj (Menactra) MCV4P 07/27/2008 OPV 06/15/1997,04/15/1997 Tdap 07/27/2008 Social History Tobacco Use Types Packs/Day Years Used Date Smoking Tobacco: Never Assessed Comments Unknown Sex and Gender Information Value Date Recorded Sex Assigned at Not on file Legal Sex Female 5:03 PM EDT Gender Identity Not on file Sexual Orientation Not on file Last Filed Vital Signs Vital Sign Reading Time Taken Comments Blood Pressure 105/69 07/25/2016 12:00 AM EDT Pulse 137 07/02/2015 12:00 AM EST Temperature 37.2 C (98.9 F) 07/25/2016 12:00 AM EDT Respiratory Rate - - Oxygen Saturation - - Inhaled Oxygen Concentration - - Weight 101 kg (222 lb 12.8 oz) 07/25/2016 12:00 AM EDT Height 153.7 cm (5' 0.5 ) 07/02/2015 12:00 AM ES T Body Mass Index 42.8 07/02/2015 12:00 AM EST Plan of Treatment Health Maintenance Due Date Last Done Comments Varicella Vaccines (1 of 2 - 13+ 2-dose series) 03/08/2010 HPV Vaccines (2 - 2-dose series) 08/09/2010 02/08/2010 DTaP,Tdap,and Td Vaccines (7 - Td or Tdap) 07/27/2018 07/27/2008, 09/25/2000, 03/08/1998, Additional history exists Influenza Vaccines (#1) 2024 02/08/2010 COVID-19 Vaccine ( season) 2025 Hepatitis B Vaccines Completed 04/15/1997, 1996, 1996 HIB Vaccines Completed 06/15/1997, 04/05, 1996 IPV Vaccines Completed 09/25/2000, 06/06, 04/15/1997, Additional history exists MMR Vaccines Completed 09/25/2000, 04/15/1997 Meningococcal Vaccine Aged Out 07/27/2008 No ifeanyi fela eligible based on patient's age to complete this topic Hepatitis A Vaccines Aged Out No long er eligible based on patient's age to complete this topic Men B Vaccine Aged Out No longer elig ible based on patient's age to complete this topic Pneumococcal Vaccine Aged Out No long er eligible based on patient's age to complete this topic
--- OUTSIDE RECORDS SUMMARY | 2025-04-24 17:47 | XMS_ITS | Encounter Summary ---
Author Organization [facility] Address [address] [place] [address] Phone Care Team Providers Care School Bus Inspector Name Role Phone Cara Duvall MD Primary Care Provider [phone] Encounter Details Date Type Department Care Team (Late st Contact Info) Description 08/12/2009 Documentation [facility] [place] [address] [place] [address] Family Medicine, Physician [address] [place], [place] [phone] Social History Tobacco Use Types Packs/Day Years [...] on filedocumented in this encounter Care Teams School Bus Inspector Relationship Specialty Start Date End Date Cara Duvall MD [address] [facility] [place] [address] PCP - General 12/14/16 10/31/22 documented as of this encounter
[2025-04-24 17:48] VITALS: BP 108/70; PULSE 84; RESP 16; TEMP 36.8; O2SAT 95
[2025-04-24 17:49] LABS: Resp Syncy Virus RNA Qual PCR NEGATIVE (Negative); SARS COV2 PCR INHOUSE NEGATIVE (Negative)
[2025-04-24 18:29] LABS: Appearance Urine Clear; Glucose Urine UA Negative (Negative); PH 5.0 (5.0-9.0); Specific Gravity - Urine >= 1.030 (1.005-1.025); UMIC TRIGGER UACC YES
[2025-04-24 18:30] LABS: UPreg QC Valid YES
[2025-04-24 18:33] LABS: UACC Culture Trigger YES
[2025-04-24 18:35] LABS: INTERNATIONAL NORM RATIO 1.2 (0.9-1.1); Prothrombin Time 14.8 SEC (11.2-13.5)
--- NOTE | 2025-04-24 19:24 | PC.NURSE ---
Per provider Dinora Cherry blood cultures are not needed prior to abx administration.
[2025-04-24] MEDS: iohexoL 350 MG/ML 100 ML INFUS..BTL IV (20:11)
[2025-04-24] MEDS: metroNIDAZOLE/NS 500 MG/100 ML PIGGYBACK 100 MG IV (21:24)
[2025-04-24 21:46] VITALS: BP 100/64; PULSE 81; RESP 16; TEMP 36.6; O2SAT 96
[2025-04-24] MEDS: Lactated Ringers 1,000 ML 80 ML IVCONT (23:02)
[2025-04-24 23:52] VITALS: BP 100/49; PULSE 80; RESP 16; TEMP 36.6; O2SAT 97
[2025-04-25] VITALS (7 sets, daily range): BP systolic 103–128; BP diastolic 59–81; PULSE 69–88; RESP 15–22; TEMP 36.6–36.8; O2SAT 95–98; BMI 46.2
[2025-04-25 05:08] LABS: Alanine Aminotransferase 225 U/L (0-31); Albumin Level 3.4 g/dL (3.5-5.0); Alkaline Phosphatase 121 U/L (39-117); Anion Gap 11 (12-20); Aspartate Amino Transferase 140 U/L (5-31); Blood Urea Nitrogen 6 mg/dL (9-16); Calcium 8.5 mg/dL (8.4-10.2); Carbon Dioxide 24 mmol/L (22-29); Chloride 111 mmol/L (96-108); Creatinine Clr Calc Pharmacy 124.2; Estimated Glomerular Filt Rate > 60; Potassium 3.7 mmol/L (3.3-5.1); Sodium 142 mmol/L (135-145); Total Protein 6.8 g/dL (6.5-8.0)
--- NOTE | 2025-04-25 08:30 | PC.NURSE ---
Assumed care of pt at 0700. Pt resting in bed quietly, a/ox4, respirations even and unlabored, no increased wob/sob noted, maintaining O2 sat >92% on RA. Pt endorsing 8/10 RUQ pain and nausea- medicated per JUL with PRN medications. Vitals updated in worklist. LR infusing per JUL. Pt updated on plan of care, call byers within reach, all needs met at this time.
--- NOTE | 2025-04-25 09:01 | PHA.MEDREC ---
Addendum entered by Michael Fernandez RPh 04/25/25 09:20: MED REC REVIEWED BY [facility] Original Note: Pharmacy Consult ? Medication Reconciliation Pharmacy has completed the medication reconciliation. Confirmed medication list with patient and against pharmacy claims. Patient states that she stopped taking oral contraceptive many years ago. Takes regular strength acetaminophen at home for general pain and last took acetaminophen at home yesterday morning.
--- NOTE | 2025-04-25 09:08 | PM.HPGS ---
History of Present Illness History of Present Illness Date of Service: 04/26/25 Chief complaint: gallbladder, CBD obstruction Narrative: Genesis Rodrigues is a 30 year old female, morbidly obese, seen earlier because of abdominal pain. She describes this has in the epigastric area mostly she says this started night which was around 48 hours prior to her admission last night She describes this as constant. She denies describes nausea without any vomiting. She says she has known gallstones. She says that she did not want any surgery for this in the past . She currently says that her pain is controlled well with medications. She has had no fever or chills. Review of Systems Constitutional: Constitutional: Denies chills and Denies fever(s) Cardiovascular: Cardiovascular: Denies chest pain, Denies dyspnea and Denies dyspnea on exertion Respiratory: Respiratory: Denies cough, Denies dyspnea and Denies dyspnea on exertion Gastrointestinal: Gastrointestinal: Denies hematochezia and Denies change in bowel habits Genitourinary: Genitourinary: Denies hematuria Musculoskeletal: Musculoskeletal: Denies back pain and Denies limited range of motion Neurologic: Denies focal weakness and Denies convulsions Psychiatric: Psychiatric: Denies depression and Denies mood swings PMFSH Past Medical History Medical History (Updated 04/25/25 @ 09:13 by Hudson Hatch MD) Common bile duct stone Morbid (severe) obesity due to excess calories Gallstones Surgical History Surgical History No pertinent past surgical history Social History Social History Household Members: Family Household Members Other:: Mom and foster child Housing: Apartment Are you a primary direct care specialist to a significant other at home: No Do you presently have visiting nurse or other home services: No 75 years or older and lives alone: No Alcohol intake: never Patient Tobacco Use Status: Never used Tobacco e-Cigarette/Vaping Use: Never Used Second Hand Smoke Exposure: No service: No Current occupational status: unemployed and disabled Current occupational exposures/hazards: No Gender identity: Female Cognitive needs: No Hearing needs: No Vision needs: No Meds Allergies Allergy/AdvReac Type Severity Reaction Status Date / Time No Known Allergies Allergy Verified 04/24/25 16:23 Active Medications: Current Medications Acetaminophen (Acetaminophen 325 Mg Tablet) 650 mg PO Q6H PRN PRN Reason: Pain, Mild 1-3,fever,headache Last Admin: 04/25/25 03:49 Dose: 650 mg Calcium Carbonate (Calcium Carbonate 750 Mg Tab.Chew) 750 mg PO Q4H PRN PRN Reason: Heartburn Lactated Ringer's (Lr) 1,000 mls @ 80 mls/hr IVCONT .[id number] [facility] Last Infusion: 04/25/25 04:24 Dose: 80 mls/hr Piperacillin Sod/Tazobactam (Sod 3.375 gm/ Sodium Chloride) 50 mls @ 100 mls/hr IV Q6H [facility] Last Infusion: 04/25/25 04:24 Dose: Infused Melatonin (Melatonin 3 Mg Tablet) 6 mg PO BEDTIME PRN PRN Reason: Insomnia Morphine Sulfate (Morphine Sulfate 4 Mg/Ml Cartridge) 3 mg IVPUSH Q3H PRN; Protocol PRN Reason: Pain, Severe (Pain Scale 7-10) Last Admin: 04/25/25 08:02 Dose: 3 mg Ondansetron HCl (Ondansetron Hcl 4 Mg/2 Ml Vial) 4 mg IVPUSH Q8H PRN PRN Reason: Nausea and Vomiting Last Admin: 04/25/25 08:06 Dose: 4 mg Sodium Chloride (0.9 % Sodium Chloride Flush 3 Ml Syringe) [facility] Last Admin: 04/25/25 08:07 Dose: Not Given Home Medications ?Medication ?Instructions ?Recorded ?Confirmed ?Last Taken ?Type acetaminophen 325 mg tablet 650 mg PO Q6H PRN Pain 04/25/25 04/25/25 04/24/25 History Physical Exam Vital Signs: Vital Signs: Last Vital Signs Temp 98.2 F 04/25/25 08:08 Pulse 74 04/25/25 08:08 Resp 20 04/25/25 08:08 BP 109/67 04/25/25 08:08 Pulse Ox 98 04/25/25 08:08 O2 Del Method Room Air 04/25/25 08:08 BMI result Body Mass Index 46.2 Const: Other: Morbidly obese General: comfortable and no acute distress Orientation/consciousness: patient oriented x3 Eyes: Other: Anicteric Sclerae: sclerae normal Neck: Neck: Yes no lymphadenopathy Resp: Auscultation: clear to auscultation bilaterally Cardio: Rhythm: regular rhythm GI: Other: No Coronado's sign currently, minimal tenderness upper abdomen on deep palpation Palpation (GI): Soft to palpation, Tenderness to palpation present (GI) and no guarding Neuro: General: patient oriented x3 Results Results Labs: Short CBC 04/24/25 Range/Units 16:55 WBC 8.4 (4.8-10.8) X10*3/uL Hgb 12.7 (12.0-16.0) g/dl Hct 39.2 (37.0-47.0) % Plt Count 575 H D (160-400) X10*3/uL BMP 04/24/25 04/25/25 16:55 04:33 Sodium 142 142 Potassium 3.4 3.7 Chloride 108 111 H Carbon Dioxide 25 24 BUN 8 L 6 L Creatinine 0.67 0.80 Calcium 9.2 8.5 D Liver Function 04/24/25 04/25/25 Range/Units 16:55 04:33 Total Bilirubin 1.7 H 1.4 H (0.0-1.0) mg/dL Direct Bilirubin 1.2 H (0.0-0.5) mg/dL AST 221 H 140 H (5-31) U/L ALT 290 H 225 H (0-31) U/L Alkaline Phosphatase 141 H 121 H (39-117) U/L Albumin 4.1 3.4 L (3.5-5.0) g/dL Urine 04/24/25 04/24/25 Range/Units 18:18 18:19 Urine Color Dark Yellow Urine Appearance Clear Urine pH 5.0 (5.0-9.0) Ur Specific [place] >= 1.030 H (1.005-1.025) Urine Protein Trace (Neg-Trace) mg/dL Urine Glucose (UA) Negative (Negative) mg/dL Urine Test NEGATIVE (NEGATIVE) Abdomen CT scan report/results: report reviewed and image reviewed CT scan - pelvis: report reviewed and image reviewed Additional studies: CT abdomen and pelvis with contrast Comparison: None provided Findings: LIMITED CHEST: Lung bases are clear. LIVER: No focal liver lesion. BILIARY: Cholelithiasis with distention of the gallbladder wall and a 3 mm stone in the distal common bile duct (series 3, image 275). PANCREAS: No mass or ductal dilatation. SPLEEN: No splenomegaly. KIDNEYS: Nonobstructive left nephrolithiasis measuring up to 4 mm in the left lower pole. No hydronephrosis. ADRENALS: No nodule. VASCULAR: No aneurysm. RETROPERITONEUM: No lymphadenopathy or mass. BOWEL/MESENTERY: No evidence of obstruction. No free fluid or air. Normal appendix. ABDOMINAL WALL: No mass or significant abnormality. URINARY BLADDER: No focal wall thickening. PELVIC NODES: No pelvic lymphadenopathy. PELVIC ORGANS: Normal for age. BONES: No acute fracture. OTHER: Negative. IMPRESSION: Findings suggest acute cholecystitis with a 3 mm stone in the distal common bile duct. Nonobstructive left nephrolithiasis without hydronephrosis. This document has been electronically signed by: Mervat Blanco MD on 04/24/2025 21:12:44 Assessment and Plan (1) Common bile duct stone: Status: Acute 30 year old female with upper abdominal pain for over 48 hours. She also has elevated bilirubin and LFTs. I have reviewed her CAT scan images. She has gallstones, some pericholecystic fluid, with note of a CBD stone. Her findings are consistent with common bile duct obstruction from gallstones She is currently very benign. She has been afebrile. She has been started on antibiotics although her white count is normal. I have assaulted with a linux devops engineer for likely ERCP. I also explained to her that she will benefit from laparoscopic cholecystectomy at some point prevent recurrent episodes She otherwise appears comfortable currently. She seems to understand the plan well. Quality Stroke Does the patient have a stroke diagnosis?: No VTE Prior VTE?: No VTE Risk Level:: Medical - low VTE Device Contraindication: N/A - Device Ordered VTE Drug Contraindication: Treatment Not Indicated Procedures Date of Service Date of Service: 04/26/25
[2025-04-25] MEDS: Lactated Ringers 1,000 ML 80 ML IVCONT ×2 (10:18→22:35)
--- NOTE | 2025-04-25 10:43 | PM.GICN ---
History of Present Illness Data of Consult Service Date: 04/26/25 Requesting physician: Hudson Hatch Primary Care Provider: None Physician HPI Reason for consult: CBD stone This is a 30-year-old female with medical history of known obesity, cholelithiasis, GERD, who presented to the hospital last evening for right upper quadrant pain and found to have acute cholecystitis. Gastroenterology has been consulted for choledocholithiasis noted on CT abdomen and pelvis. History obtained from the patient, who states that she has had intermittent biliary colic for a few years. Has seen General surgery in the past as well, no intervention was elected at that time. This time the day of admission she had severe R sided abd pain shortly after having lunch assoc with nausea and vomiting. Due to change in severity of pain she decided to come to ER. Vitals have remained stable. CT abdomen and pelvis images personally reviewed. Punctate stone noted in the distal CBD with CBD dilated to 7 mm upstream. Labs without leukocytosis. LFTs with total bilirubin of 1.4, AST and ALT downtrending from yesterday. Lipase negative on admission. Review of Systems Review of Systems: Yes all other systems are reviewed and are negative [facility] Past Medical History Medical History (Updated 04/25/25 @ 09:13 by Hudson Hatch MD) Common bile duct stone Morbid (severe) obesity due to excess calories Gallstones Surgical History Surgical History No pertinent past surgical history Social History Social History Household Members: Family Household Members Other:: Mom and foster child Housing: Apartment Are you a primary child care supervisor to a significant other at home: No Do you presently have visiting nurse or other home services: No 75 years or older and lives alone: No Alcohol intake: never Patient Tobacco Use Status: Never used Tobacco e-Cigarette/Vaping Use: Never Used Second Hand Smoke Exposure: No service: No Current occupational status: unemployed and disabled Current occupational exposures/hazards: No Gender identity: Female Cognitive needs: No Hearing needs: No Vision needs: No Meds Allergies Allergy/AdvReac Type Severity Reaction Status Date / Time No Known Allergies Allergy Verified 04/24/25 16:23 Active Medications: Current Medications Acetaminophen (Acetaminophen 325 Mg Tablet) 650 mg PO Q6H PRN PRN Reason: Pain, Mild 1-3,fever,headache Last Admin: 04/25/25 03:49 Dose: 650 mg Calcium Carbonate (Calcium Carbonate 750 Mg Tab.Chew) 750 mg PO Q4H PRN PRN Reason: Heartburn Lactated Ringer's (Lr) 1,000 mls @ 80 mls/hr IVCONT .[id number] [facility] Last Admin: 04/25/25 10:18 Dose: 80 mls/hr Piperacillin Sod/Tazobactam (Sod 3.375 gm/ Sodium Chloride) 50 mls @ 100 mls/hr IV Q6H [facility] Last Admin: 04/25/25 10:18 Dose: 100 mls/hr Melatonin (Melatonin 3 Mg Tablet) 6 mg PO BEDTIME PRN PRN Reason: Insomnia Morphine Sulfate (Morphine Sulfate 4 Mg/Ml Cartridge) 3 mg IVPUSH Q3H PRN; Protocol PRN Reason: Pain, Severe (Pain Scale 7-10) Last Admin: 04/25/25 08:02 Dose: 3 mg Ondansetron HCl (Ondansetron Hcl 4 Mg/2 Ml Vial) 4 mg IVPUSH Q8H PRN PRN Reason: Nausea and Vomiting Last Admin: 04/25/25 08:06 Dose: 4 mg Sodium Chloride (0.9 % Sodium Chloride Flush 3 Ml Syringe) [address] [facility] Last Admin: 04/25/25 08:07 Dose: Not Given Home Medications ?Medication ?Instructions ?Recorded ?Confirmed ?Last Taken ?Type acetaminophen 325 mg tablet 650 mg PO Q6H PRN Pain 04/25/25 04/25/25 04/24/25 History Physical Exam Exam: Exam: No apparent distress Nonicteric Abdomen soft, nondistended, mild guarding, no murphys Alert and oriented x3 Vital Signs: Vital Signs: Last Vital Signs Temp 98.2 F 04/25/25 08:08 Pulse 74 04/25/25 08:08 Resp 20 04/25/25 08:08 BP 109/67 04/25/25 08:08 Pulse Ox 98 04/25/25 08:08 O2 Del Method Room Air 04/25/25 08:08 BMI result Body Mass Index 46.2 Results Labs 04/24/25 16:55 04/26/25 05:17 Labs: Short CBC 04/24/25 Range/Units 16:55 WBC 8.4 (4.8-10.8) X10*3/uL Hgb 12.7 (12.0-16.0) g/dl Hct 39.2 (37.0-47.0) % Plt Count 575 H D (160-400) X10*3/uL BMP 04/24/25 04/25/25 16:55 04:33 Sodium 142 142 Potassium 3.4 3.7 Chloride 108 111 H Carbon Dioxide 25 24 BUN 8 L 6 L Creatinine 0.67 0.80 Calcium 9.2 8.5 D Liver Function 04/24/25 04/25/25 Range/Units 16:55 04:33 Total Bilirubin 1.7 H 1.4 H (0.0-1.0) mg/dL Direct Bilirubin 1.2 H (0.0-0.5) mg/dL AST 221 H 140 H (5-31) U/L ALT 290 H 225 H (0-31) U/L Alkaline Phosphatase 141 H 121 H (39-117) U/L Albumin 4.1 3.4 L (3.5-5.0) g/dL Urine 04/24/25 Range/Units 18:19 Urine Color Dark Yellow Urine Appearance Clear Urine pH 5.0 (5.0-9.0) Ur Specific [place] >= 1.030 H (1.005-1.025) Urine Protein Trace (Neg-Trace) mg/dL Urine Glucose (UA) Negative (Negative) mg/dL Assessment and Plan (1) Common bile duct stone: Status: Acute (2) Acute cholecystitis: Status: Acute (3) Gallstones: Status: Acute Plan Patient presenting with acute onset of right upper quadrant pain with findings of symptomatic gallstones including possible cholecystitis as well as choledocholithiasis. Reviewed with the patient that will benefit from ERCP for biliary drainage. This is tentatively scheduled for tomorrow with the good Dr. Cheatham. Plan: - OK for CLD from GI standpoint - Low threshold to start Abx for ascending cholangitis if pt develops fever, spike in white count, CINDY, AMS etc - NPO after MN for ercp tentatively tmrw - Timing of interval cholecystectomy as per gen surgery Thank you for allowing me to participate in her care. Please do not hesitate to reach out for any questions or concerns Procedures Date of Service Date of Service: 04/26/25
--- NOTE | 2025-04-25 11:48 | HO.NURTONUR ---
30 y/o F, a/ox4, Full Code Came from home for RUQ Abd pain that radiates to her right flank with nausea and vomiting. Labs: LFTs elevated Reports: Abd/Pelvis CT- Acute cholecystitis with 3mm stone, Abd US- Cholelithiasis, 8mm stone at GB neck, +P[place] sign 20g IV Left AC- she got IV abx (zosyn), has LR running @80ml/hr. She got PRN Morphine and Zofran @ 0802 Clear liquid diet --> NPO at midnight GI Consult done- plan for ERCP tomorrow and possible cholecystectomy. Independent/Ambulatory at baseline
--- NOTE | 2025-04-25 13:38 | PM.EVENT ---
Event Note Date of Service: 04/25/25 Event Note: Seen on afternoon rounds Says she is comfortable Pain much less although she does get pain medications Looks well overall Abdomen is soft and benign Stable vital sign Seen by GI - ERCP planned tomorrow I explained this procedure to patient Doing well overall Time Spent With Patient Time: Total time managing care of this patient today ____ minutes.
[2025-04-26] VITALS (9 sets, daily range): BP systolic 103–130; BP diastolic 53–74; PULSE 73–97; RESP 14–20; TEMP 36.2–37.1; O2SAT 95–97
[2025-04-26 06:20] LABS: Alanine Aminotransferase 220 U/L (0-31); Albumin Level 3.7 g/dL (3.5-5.0); Alkaline Phosphatase 131 U/L (39-117); Anion Gap 14 (12-20); Aspartate Amino Transferase 111 U/L (5-31); Blood Urea Nitrogen 4 mg/dL (9-16); Calcium 8.9 mg/dL (8.4-10.2); Carbon Dioxide 25 mmol/L (22-29); Chloride 106 mmol/L (96-108); Creatinine Clr Calc Pharmacy 138.0; Estimated Glomerular Filt Rate > 60; INTERNATIONAL NORM RATIO 1.3 (0.9-1.1); Potassium 3.5 mmol/L (3.3-5.1); Prothrombin Time 15.5 SEC (11.2-13.5); Sodium 141 mmol/L (135-145); Total Protein 7.5 g/dL (6.5-8.0)
--- NOTE | 2025-04-26 08:01 | PM.PNGS ---
Subjective Subjective Date of Service: 04/27/25 <Hudson Hatch MD - Last Filed: 04/27/25 07:19> 04/26/25 <Rodo Lewis PA-C - Last Filed: 04/26/25 08:45> Interval history: Feels well this morning Says she slept well overnight minimal pain No fever <Hudson Hatch MD - Last Filed: 04/27/25 07:19> Feels well this morning Says she slept well overnight minimal pain No fever denies pain, nausea, vomiting. She overall feels well. <Rodo Lewis PA-C - Last Filed: 04/26/25 08:45> Physical Exam Vital Signs: Vital Signs: Last Vital Signs Temp 97.1 F 04/26/25 07:33 Pulse 97 04/26/25 07:33 Resp 16 04/26/25 07:33 BP 127/74 04/26/25 07:33 Pulse Ox 97 04/26/25 07:33 O2 Del Method Room Air 04/26/25 07:33 BMI result Body Mass Index 46.2 <Hudson Hatch MD - Last Filed: 04/27/25 07:19> Const: General: comfortable and no acute distress <Hudson Hatch MD - Last Filed: 04/27/25 07:19> Resp: Effort & Inspection: normal respiratory effort <Hudson Hatch MD - Last Filed: 04/27/25 07:19> Cardio: Rate: regular rate <Hudson Hatch MD - Last Filed: 04/27/25 07:19> GI: Palpation (GI): Soft to palpation, not firm, Tenderness to palpation present (GI) (Minimal tenderness epigastric area) and no guarding <Hudson Hatch MD - Last Filed: 04/27/25 07:19> Objective Data Active Medications Acetaminophen (Acetaminophen 325 Mg Tablet) 650 mg PO Q6H PRN PRN Reason: Pain, Mild 1-3,fever,headache Last Admin: 04/25/25 03:49 Dose: 650 mg Documented By: RENA Calcium Carbonate (Calcium Carbonate 750 Mg Tab.Chew) 750 mg PO Q4H PRN PRN Reason: Heartburn Lactated Ringer's (Lr) 1,000 mls @ 80 mls/hr IVCONT .[id number] [facility] Last Admin: 04/25/25 22:35 Dose: 80 mls/hr Documented By: ASHANTI Piperacillin Sod/Tazobactam (Sod 3.375 gm/ Sodium Chloride) 50 mls @ 100 mls/hr IV Q6H [facility] Last Infusion: 04/26/25 04:09 Dose: Infused Documented By: ASHANTI Indomethacin (Indomethacin 50 Mg Supp.Rect) 100 mg [place] PREOP ONE Stop: 04/26/25 09:01 Melatonin (Melatonin 3 Mg Tablet) 6 mg PO BEDTIME PRN PRN Reason: Insomnia Morphine Sulfate (Morphine Sulfate 4 Mg/Ml Cartridge) 3 mg IVPUSH Q3H PRN; Protocol PRN Reason: Pain, Severe (Pain Scale 7-10) Last Admin: 04/25/25 20:18 Dose: 3 mg Documented By: ASHANTI Ondansetron HCl (Ondansetron Hcl 4 Mg/2 Ml Vial) 4 mg IVPUSH Q8H PRN PRN Reason: Nausea and Vomiting Last Admin: 04/25/25 08:06 Dose: 4 mg Documented By: JOE Sodium Chloride (0.9 % Sodium Chloride Flush 3 Ml Syringe) 3 ml IVFLUSH QSHIFT [facility] Last Admin: 04/26/25 07:58 Dose: Not Given Documented By: OMAR Non-Admin Reason: IV Running <Hudson Hatch MD - Last Filed: 04/27/25 07:19> Labs CBC & Chem 7: 04/27/25 05:03 04/27/25 05:03 <Hudson Hatch MD - Last Filed: 04/27/25 07:19> Labs: Laboratory Results - last 24 hr 04/26/25 05:17 PT 15.5 H INR 1.3 H Anion Gap 14 Estim Creat Clear Calc 138.0 Estimated GFR > 60 Random Glucose 96 Calcium 8.9 Total Bilirubin 1.8 H Direct Bilirubin 1.2 H AST 111 H ALT 220 H Alkaline Phosphatase 131 H Total Protein 7.5 Albumin 3.7 <Hudson Hatch MD - Last Filed: 04/27/25 07:19> Microbiology Microbiology Results: Microbiology 04/24/25 18:19 Urine Culture - Preliminary Urine clean catch - Clean Catch Midstream Culture too young to evaluate. <Hudson Hatch MD - Last Filed: 04/27/25 07:19> Procedures Date of Service Date of Service: 04/27/25 <Hudson Hatch MD - Last Filed: 04/27/25 07:19> 04/26/25 <Rodo Lewis PA-C - Last Filed: 04/26/25 08:45> Progress Note: A&P Assessment and plan (1) Common bile duct stone: Status: Acute <Hudson Hatch MD - Last Filed: 04/27/25 07:19> Assessment and Plan: Bilirubin still elevated For ERCP today Looks well overall Reviewed with her the option of proceeding with cholecystectomy after I explained the technique of laparoscopic cholecystectomy and possible open cholecystectomy I reviewed the risks including but not limited to bleeding, infections, injury to other organs including of the gallbladder, liver and the bile duct, bile leak, retained stones as well as the benefits and alternatives Explained to her that her perioperative he is here high in view of her morbid obesity Explained to her what to expect postoperatively She says she is interested in having cholecystectomy as an inpatient <Hudson Hatch MD - Last Filed: 04/27/25 07:19> Assessment and Plan: 30 year old female admitted for choledocolithasis. She feels well today, pain minimal, no nausea or vomiting. Transaminases and bilirubin remain elevated. Abdomen exam soft, some tenderness on the RUQ. Plan for ERCP today, patient interested inlap miroslava while inpatient. Will trend liver enzymes, plan for laparascopic cholecystectomy when labs trending down. Continue ABX ERCP today NPO ambulation as tolerated trend liver enzymes. <Rodo Lewis PA-C - Last Filed: 04/26/25 08:45> Time Spent With Patient Time: Total time managing care of this patient today ____ minutes. <Hudson Hatch MD - Last Filed: 04/27/25 07:19> Quality Stroke Does the patient have a stroke diagnosis?: No <Rodo Lewis PA-C - Last Filed: 04/26/25 08:45> VTE Prior VTE?: No <Rodo Lewis PA-C - Last Filed: 04/26/25 08:45> VTE Risk Level:: Medical - low <Hudson Hatch MD - Last Filed: 04/27/25 07:19> VTE Device Contraindication: N/A - Device Ordered <Hudson Hatch MD - Last Filed: 04/27/25 07:19> VTE Drug Contraindication: Treatment Not Indicated <Hudson Hatch MD - Last Filed: 04/27/25 07:19>
--- NOTE | 2025-04-26 08:06 | P.CONAN_ITS ---
Documented by User: Susannah Mustafa NP 04/26/25 08:06 HPI - Anesthesia Eval Consult details Narrative: 30 yr old female for ERCP BMI 46 INR 1.3 PMFSH Active Problems Active Problems: All Active Problems Common bile duct stone (Acute) Morbid (severe) obesity due to excess calories (Acute) Acute cholecystitis (Acute) Encounter for gynecological examination with Papanicolaou smear of cervix (Acute) Irregular periods (Acute) Obesity, morbid, BMI 40.0-49.9 (Acute) Cervical cancer screening (Acute) Laboratory exam ordered as part of routine general medical examination (Acute) Annual physical exam (Acute) Gallstones (Acute) Biliary colic (Acute) Gastritis (Acute) Past Medical History Medical History Common bile duct stone Morbid (severe) obesity due to excess calories Gallstones Surgical History Surgical History [place] teeth extracted No pertinent past surgical history Social History Social History Household Members: Family Household Members Other:: Mom and foster child Housing: Apartment Are you a primary youth care professional to a significant other at home: No Do you presently have visiting nurse or other home services: No 75 years or older and lives alone: No Alcohol intake: never Patient Tobacco Use Status: Never used Tobacco e-Cigarette/Vaping Use: Never Used Second Hand Smoke Exposure: No service: No Current occupational status: unemployed and disabled Current occupational exposures/hazards: No Gender identity: Female Cognitive needs: No Hearing needs: No Vision needs: No Meds Allergies Allergy/AdvReac Type Severity Reaction Status Date / Time No Known Allergies Allergy Verified 04/24/25 16:23 Active Medications: Current Medications Acetaminophen (Acetaminophen 325 Mg Tablet) 650 mg PO Q6H PRN PRN Reason: Pain, Mild 1-3,fever,headache Last Admin: 04/25/25 03:49 Dose: 650 mg Calcium Carbonate (Calcium Carbonate 750 Mg Tab.Chew) 750 mg PO Q4H PRN PRN Reason: Heartburn Lactated Ringer's (Lr) 1,000 mls @ 80 mls/hr IVCONT .[id number] [facility] Last Admin: 04/25/25 22:35 Dose: 80 mls/hr Piperacillin Sod/Tazobactam (Sod 3.375 gm/ Sodium Chloride) 50 mls @ 100 mls/hr IV Q6H [facility] Last Infusion: 04/26/25 04:09 Dose: Infused Indomethacin (Indomethacin 50 Mg Supp.Rect) 100 mg [place] PREOP ONE Stop: 04/26/25 09:01 Melatonin (Melatonin 3 Mg Tablet) 6 mg PO BEDTIME PRN PRN Reason: Insomnia Morphine Sulfate (Morphine Sulfate 4 Mg/Ml Cartridge) 3 mg IVPUSH Q3H PRN; Protocol PRN Reason: Pain, Severe (Pain Scale 7-10) Last Admin: 04/25/25 20:18 Dose: 3 mg Ondansetron HCl (Ondansetron Hcl 4 Mg/2 Ml Vial) 4 mg IVPUSH Q8H PRN PRN Reason: Nausea and Vomiting Last Admin: 04/25/25 08:06 Dose: 4 mg Sodium Chloride (0.9 % Sodium Chloride Flush 3 Ml Syringe) 3 ml IVFLUSH [facility] Last Admin: 04/26/25 07:58 Dose: Not Given Home Medications ?Medication ?Instructions ?Recorded ?Confirmed ?Last Taken ?Type acetaminophen 325 mg tablet 650 mg PO Q6H PRN Pain 04/25/25 04/24/25 History Exam Height,Weight and Vital Signs: Height 5 ft 2 in Weight 114.5 kg Last Vital Signs Temp 97.1 F 04/26/25 07:33 Pulse 97 04/26/25 07:33 Resp 16 04/26/25 07:33 BP 127/74 04/26/25 07:33 Pulse Ox 97 04/26/25 07:33 O2 Del Method Room Air 04/26/25 07:33 Pertinent Lab Results Pertinent Lab Results: Laboratory Tests 04/24/25 04/24/25 04/24/25 16:55 18:18 18:19 WBC 8.4 RBC 4.67 Hgb 12.7 Hct 39.2 MCV 83.9 MCH 27.2 MCHC 32.4 RDW 14.0 Plt Count 575 H D MPV 9.0 L Immature Gran % (Auto) 0.4 Neut % (Auto) 59.5 Lymph % (Auto) 29.2 Coke % (Auto) 8.6 Eos % (Auto) 1.8 Baso % (Auto) 0.5 Lymph # (Auto) 2.4 [place] # (Auto) 0.7 Eos # (Auto) 0.2 Baso # (Auto) 0.0 Abs Immat Gran (auto) 0.03 Absolute Neuts (auto) 5.0 Absolute Nucleated RBC 0.000 Nucleated RBC % (auto) 0.0 PT 14.8 H INR 1.2 H Sodium 142 Potassium 3.4 Chloride 108 Carbon Dioxide 25 Anion Gap 12 BUN 8 L Creatinine 0.67 Estim Creat Clear Calc 148.3 Estimated GFR > 60 Random Glucose 120 H Calcium 9.2 Total Bilirubin 1.7 H Direct Bilirubin 1.2 H AST 221 H ALT 290 H Alkaline Phosphatase 141 H Total Protein 8.1 H Albumin 4.1 Lipase 16 Urine Color Dark Yellow Urine Appearance Clear Urine pH 5.0 Ur Specific [place] >= 1.030 H Urine Protein Trace Urine Glucose (UA) Negative Urine Ketones Trace Urine Blood Moderate (2+) H Urine Nitrite Positive H Ur Leukocyte Esterase Trace H Urine RBC 11-20 H Urine WBC 0-5 Ur Squamous Epith Cells 3-5 Urine Bacteria Trace Hyaline Casts 3-5 Urine Test NEGATIVE Influenza Type A (PCR) NEGATIVE Influenza Type B (PCR) NEGATIVE RSV RNA Qual (PCR) NEGATIVE SARS-CoV-2 RNA (RT-PCR) NEGATIVE 04/25/25 04/26/25 04:33 05:17 WBC RBC Hgb Hct MCV MCH MCHC RDW Plt Count MPV Immature Gran % (Auto) Neut % (Auto) Lymph % (Auto) [place] % (Auto) Eos % (Auto) Baso % (Auto) Lymph # (Auto) [place] # (Auto) Eos # (Auto) Baso # (Auto) Abs Immat Gran (auto) Absolute Neuts (auto) Absolute Nucleated RBC Nucleated RBC % (auto) PT 15.5 H INR 1.3 H Sodium 142 141 Potassium 3.7 3.5 Chloride 111 H 106 Carbon Dioxide 24 25 Anion Gap 11 L 14 BUN 6 L 4 L Creatinine 0.80 0.72 Estim Creat Clear Calc 124.2 138.0 Estimated GFR > 60 > 60 Random Glucose 108 96 Calcium 8.5 D 8.9 Total Bilirubin 1.4 H 1.8 H Direct Bilirubin 1.2 H AST 140 H 111 H ALT 225 H 220 H Alkaline Phosphatase 121 H 131 H Total Protein 6.8 7.5 Albumin 3.4 L 3.7 Lipase Urine Color Urine Appearance Urine pH Ur Specific [place] Urine Protein Urine Glucose (UA) Urine Ketones Urine Blood Urine Nitrite Ur Leukocyte Esterase Urine RBC Urine WBC Ur Squamous Epith Cells Urine Bacteria Hyaline Casts Urine Test Influenza Type A (PCR) Influenza Type B (PCR) RSV RNA Qual (PCR) SARS-CoV-2 RNA (RT-PCR) Documented by User: Teri Burgess MD 04/26/25 15:14 [facility] Past Medical History Medical History Common bile duct stone Morbid (severe) obesity due to excess calories Gallstones Family History Family history of problems with anesthesia: No Surgical History Surgical History [place] teeth extracted No pertinent past surgical history History of Problems with Anesthesia: No Social History Social History Household Members: Family Household Members Other:: Mom and foster child Housing: Apartment Are you a primary youth care professional to a significant other at home: No Do you presently have visiting nurse or other home services: No 75 years or older and lives alone: No Alcohol intake: never Patient Tobacco Use Status: Never used Tobacco e-Cigarette/Vaping Use: Never Used Second Hand Smoke Exposure: No service: No Current occupational status: unemployed and disabled Current occupational exposures/hazards: No Gender identity: Female Cognitive needs: No Hearing needs: No Vision needs: No Meds Allergies Allergy/AdvReac Type Severity Reaction Status Date / Time No Known Allergies Allergy Verified 04/24/25 16:23 Home Medications ?Medication ?Instructions ?Recorded ?Confirmed ?Last Taken ?Type acetaminophen 325 mg tablet 650 mg PO Q6H PRN Pain 04/25/25 04/24/25 History Exam Airway Mallampati Class: II TM Dist: <=3cm Neck ROM: Full Heart: rrr Lungs: cta Assessment and Plan Assessment Anesthesia Assessment: Anesthesia Plan Discussed and Chart Reviewed Final Anesthetic Review Family History of Problems with Anesthesia: No History of Problems with Anesthesia: No NPO: Yes ASA Class: III Final Preanesthetic Review: No Changes in Pt Med Stat, Meds/Allgs Chart Reviewed, Consent Obtained/Reviewed and Anes Risks/Benef Reviewed Patient Risk: Intermediate Procedure Risk: Intermediate Anesthetic Plan Anesthetic Plan: GA and Agree w/ Assess. and Plan Disposition: Standard PACU
--- NOTE | 2025-04-26 10:53 | PC.NURSE ---
Patient transported to OR by transporter
--- NOTE | 2025-04-26 13:39 | MHC.SHP ---
Pre-Procedural Eval Section A - 24 Hr Update-Section A only Date of Service: 04/26/25 The patient is an INPATIENT: Yes The patient has been examined within 24 hours of the surgical procedure. The History & Physical has been completed within 30 days and I have reviewed it.: Yes Section B - Complete if H&P > 30 days Chief Complaint: gallbladder, CBD obstruction Allergies: Allergies Allergy/AdvReac Type Severity Reaction Status Date / Time No Known Allergies Allergy Verified 04/24/25 16:23 Plan I have reviewed the history and physical and performed a pertinent physical examination on my patient. No changes have occurred unless specified. Time Spent With Patient Time: Total time managing care of this patient today ____ minutes.
[2025-04-26] MEDS: Lactated Ringers 1,000 ML 50 ML IVCONT (14:43)
--- NOTE | 2025-04-26 15:48 | PM.EVENT ---
Event Note Date of Service: 04/26/25 Event Note: GI--Chart reviewed and case D/W Dr. Castro. Dr. Castro has asked me to see the patient regarding her CBD stone seen on the imaging studies and need for an ERCP prior to her CCY. I have spoken with the patient in the preop area regarding the need for the ERCP. Full consent has been obtained from her for this, including risks of bleeding, perforation, cholangitis, and pancreatitis. She expressed good understanding of the situation. She was comfortable with this plan. Thanks Time Spent With Patient Time: Total time managing care of this patient today ____ minutes.
--- NOTE | 2025-04-26 19:35 | PM.OP ---
Brief Operative Note Date of Service: 04/26/25 Pre-op diagnosis: Choledocholithiasis Post-op diagnosis: same Procedure: ERCP with sphincterotomy and removal of a CBD stone Surgeon: Tutu Cheatham MD Anesthesia: GETA Was an Line Decorator used for this Procedure?: No Estimated blood loss (mL): 2.0 Pathology: none sent Condition: stable Disposition: PACU
--- NOTE | 2025-04-26 19:36 | PM.EVENT ---
Event Note Date of Service: 04/26/25 Event Note: GI-Full note dictated ERCP with sphincterotomy and removal of a CBD stone Findings: 1. Normal major papilla 2. Selective cholangiograms revealed a single filling defect c/w a stone in the mid to distal CBD with normal intrahepatic ducts. The cystic duct filled, as did the gallbladder that was filled with multiple filling defects c/w stones 3. Performed an approx 8mm sphincterotomy without any immedicate complications--good drainage of bile and dye noted, and no purulence 4. Duct swept with a 12mm balloon and a single stone was pulled into the duodenum 5. F/U cholangiograms were negative for other filling defects, and the 12mm balloon pulled easily into the duodenum--there was good drainage of bile and contrast noted 6. Pancreatic duct was cannulated with the straight guidewire approx 3 times, but dye was never injected Imp: Choleocholithiasis Rec: No aspirin, other blood thinners, or NSAIDs for 1 week. NPO after MN for Lap CCY on 04/27 as long as the patient is stable and without signs or symptoms of pancreatitis. F/U labs in AM---will hold off on checking a lipase unless she has symptoms of pancreatitis since the lipase will routinely be elevated from the PD cannulations. D/W patient. Thanks Time Spent With Patient Time: Total time managing care of this patient today ____ minutes.
[2025-04-26] MEDS: Lactated Ringers 1,000 ML 80 ML IVCONT (20:20)
--- NOTE | 2025-04-26 20:37 | OP_ITS ---
DATE OF SERVICE: 04/26/2025 SURGEON: Tutu Cheatham MD INDICATIONS: The patient presents for evaluation of abdominal pain, elevated LFTs, and abnormal imaging of her biliary tract with findings consistent with choledocholithiasis. Full consent has been obtained from her for this, including risks of bleeding, perforation, cholangitis, and pancreatitis. PREOPERATIVE DIAGNOSIS: Choledocholithiasis. POSTOPERATIVE DIAGNOSIS: Choledocholithiasis. PROCEDURE PERFORMED: ERCP with sphincterotomy and removal of common duct stone. ESTIMATED BLOOD LOSS: COMPLICATIONS: ANESTHESIA: Medications used; general anesthesia. ASSISTANTS: SPECIMENS: DESCRIPTION OF PROCEDURE: The patient was placed in the semiprone position. The [employer] video duodenum scope was passed in the posterior oropharynx and upper esophagus. The scope was passed slowly into the stomach and advanced to the pylorus. The duodenum was cannulated to the descending portion. The region of the major papilla was visualized and appeared normal. There was some flow of bile coming from the papilla. Initial attempts at cannulation of the major papilla with the [employer] triple lumen sphincterotome over a straight guidewire yielded entry into the pancreatic duct, 2 or 3 times. No dye was injected. With repositioning of the tip of the scope, I was then able to achieve a selective cannulation of the biliary tree over the straight guidewire. Selective cholangiograms revealed good filling of the intrahepatic and extrahepatic bile duct, as well as the cystic duct and gallbladder. There was a single filling defect noted in the midportion of the common bile duct. I did not visualize any other filling defects in the intrahepatic or extrahepatic bile ducts, but the gallbladder was filled with filling defects consistent with stones. I then performed an approximately 8 mm sphincterotomy over the guidewire without any immediate complication. There was good flow of bile and dye noted, but without any purulence. I then cannulated the bile duct with a 12 mm balloon catheter over the guidewire. With the balloon inflated, cholangiograms were obtained and a single filling defect was again noted in the midportion of the duct that was below the balloon. The balloon catheter was pulled out of the bile duct with the balloon inflated completely and pulled easily into the duodenum. A single greenish black stone was noted coming out of the papilla and into the duodenum as well. There remained excellent drainage of bile and dye into the duodenum, but without purulence. Followup cholangiograms with the balloon both inflated and deflated did not reveal any sign of other filling defects in the intrahepatic or extrahepatic bile ducts. Again, there was excellent flow of bile and dye noted into the duodenum, but without purulence. Again, the balloon was pulled easily into the duodenum in the fully inflated position at 12 mm. There was excellent drainage of dye noted as well. At that point, the scope was withdrawn back in the stomach. Residual bile and other fluids were removed from the stomach by suction. The scope was then withdrawn from the patient. She tolerated the procedure well and was returned to recovery area in stable condition. IMPRESSION: Choledocholithiasis, status post endoscopic retrograde cholangio-pancreatography with sphincterotomy and stone removal. PLAN: The patient will be observed. If stable overnight and she is comfortable, then she can hopefully undergo a laparoscopic cholecystectomy tomorrow with Dr. Hatch. She will have a followup laboratories tomorrow. She should not receive any aspirin or NSAIDs, or any other type of blood thinner for 7 days. I would hold off on checking a lipase as I suspect that will be elevated just from the cannulation of the pancreatic duct, but certainly if she has abdominal pain to suggest pancreatitis, then we would add that on to the morning labs if need be. However, hopefully, if things are stable, she can go for the laparoscopic cholecystectomy tomorrow. This has been discussed with the patient. MD EMIL Khan/DANUTA / [id number] MTDD
[2025-04-26] MEDS: 0.9 % Sodium Chloride Flush 3 ML SYRINGE IVFLUSH (22:00)
[2025-04-27] VITALS (10 sets, daily range): BP systolic 113–135; BP diastolic 66–79; PULSE 69–93; RESP 15–27; TEMP 36.2–36.6; O2SAT 90–97
[2025-04-27 05:16] LABS: Hematocrit 36.7 % (37.0-47.0); Hemoglobin 11.9 g/dl (12.0-16.0); Imm Gran Abs Auto 0.02 X10*3/uL (0.00-0.03); Imm Gran Pct Auto 0.2 % (0.0-0.4); Lymphocytes Absolute Auto 1.9 X10*3/uL (1.2-4.9); MANUAL DIFF FLAG NO; Mean Corpuscular HGB Conc 32.4 g/dl (31.0-35.0); Mean Corpuscular Hemoglobin 27.9 pg (27.0-33.0); Mean Corpuscular Volume 85.9 fL (80.0-98.0); NRBC Abs Auto 0.000 X10*3/uL (0.0-0.012); NRBC Pct Auto 0.0 /100WBC (0.0-0.2); Platelet Count 497 X10*3/uL (160-400); Red Blood Count 4.27 X10*6/uL (4.20-5.50); White Blood Count 9.4 X10*3/uL (4.8-10.8)
[2025-04-27 05:31] LABS: INTERNATIONAL NORM RATIO 1.2 (0.9-1.1); Prothrombin Time 14.6 SEC (11.2-13.5)
[2025-04-27 05:38] LABS: Alanine Aminotransferase 194 U/L (0-31); Albumin Level 3.6 g/dL (3.5-5.0); Alkaline Phosphatase 129 U/L (39-117); Anion Gap 14 (12-20); Aspartate Amino Transferase 97 U/L (5-31); Blood Urea Nitrogen 8 mg/dL (9-16); Calcium 8.6 mg/dL (8.4-10.2); Carbon Dioxide 24 mmol/L (22-29); Chloride 106 mmol/L (96-108); Creatinine Clr Calc Pharmacy 146.1; Estimated Glomerular Filt Rate > 60; Potassium 4.0 mmol/L (3.3-5.1); Sodium 140 mmol/L (135-145); Total Protein 7.2 g/dL (6.5-8.0)
[2025-04-27] MEDS: Lactated Ringers 1,000 ML 50 ML IVCONT (07:02)
--- NOTE | 2025-04-27 07:19 | P.PNGS_ITS ---
Subjective Subjective Date of Service: 04/27/25 <Rodo Lewis PA-C - Last Filed: 04/27/25 10:06> 04/27/25 <Hudson Hatch MD - Last Filed: 04/27/25 07:21> Interval history: Patient seen in preop. Doing well. Minimal pain. Denying nausea or vomiting. <Rodo Lewis PA-C - Last Filed: 04/27/25 10:06> Physical Exam 2 Vital Signs: Vital Signs: Last Vital Signs Temp 97.9 F 04/27/25 07:00 Pulse 79 04/27/25 07:00 Resp 16 04/27/25 07:00 BP 119/70 04/27/25 07:00 Pulse Ox 97 04/27/25 07:00 O2 Del Method Room Air 04/27/25 07:00 O2 Flow Rate 2 04/27/25 03:14 BMI result Body Mass Index 46.2 <Rodo Lewis PA-C - Last Filed: 04/27/25 10:06> Const: General: comfortable and no acute distress <Rodo Lewis PA-C - Last Filed: 04/27/25 10:06> Nutritional Appearance: obese <Rodo Lewis PA-C - Last Filed: 04/27/25 10:06> Orientation/consciousness: patient oriented x3 <Rodo Lewis PA-C - Last Filed: 04/27/25 10:06> Resp: Effort & Inspection: normal respiratory effort and able to speak in complete sentences <Rodo Lewis PA-C - Last Filed: 04/27/25 10:06> GI: Inspection: No distended <Rodo Lewis PA-C - Last Filed: 04/27/25 10:06> Palpation (GI): Soft to palpation, nontender and no guarding <Rodo Lewis PA-C - Last Filed: 04/27/25 10:06> Neuro: General: patient oriented x3 <MICKI Campoverde Last Filed: 04/27/25 10:06> Objective Data Active Medications Acetaminophen (Acetaminophen 325 Mg Tablet) 650 mg PO Q6H PRN PRN Reason: Pain, Mild 1-3,fever,headache Last Admin: 04/25/25 03:49 Dose: 650 mg Documented By: RENA Calcium Carbonate (Calcium Carbonate 750 Mg Tab.Chew) 750 mg PO Q4H PRN PRN Reason: Heartburn Lactated Ringer's (Lr) 1,000 mls @ 80 mls/hr IVCONT .[id number] [facility] Last Admin: 04/27/25 03:11 Dose: Not Given Documented By: VALENTE Non-Admin Reason: Previously Administered Piperacillin Sod/Tazobactam (Sod 3.375 gm/ Sodium Chloride) 50 mls @ 100 mls/hr IV Q6H [facility] Last Infusion: 04/27/25 03:38 Dose: Infused Documented By: VALENTE Lactated Ringer's (Lr) 1,000 mls @ 50 mls/hr IVCONT .Q20H [facility] Last Admin: 04/27/25 07:02 Dose: 50 mls/hr Documented By: RAJESH Melatonin (Melatonin 3 Mg Tablet) 6 mg PO BEDTIME PRN PRN Reason: Insomnia Morphine Sulfate (Morphine Sulfate 4 Mg/Ml Cartridge) 3 mg IVPUSH Q3H PRN; Protocol PRN Reason: Pain, Severe (Pain Scale 7-10) Last Admin: 04/26/25 10:46 Dose: 3 mg Documented By: OMAR Naloxone HCl (Naloxone Hcl 0.4 Mg/Ml Vial) 0.04 mg IVPUSH Q5M PRN PRN Reason: Excessive sedation or RR < 8 Ondansetron HCl (Ondansetron Hcl 4 Mg/2 Ml Vial) 4 mg IVPUSH Q8H PRN PRN Reason: Nausea and Vomiting Last Admin: 04/25/25 08:06 Dose: 4 mg Documented By: JOE Sodium Chloride (0.9 % Sodium Chloride Flush 3 Ml Syringe) 3 ml IVFLUSH QSHIFT [facility] Last Admin: 04/27/25 06:53 Dose: Not Given Documented By: ABBE Non-Admin Reason: Off Unit: Surgery <Rodo Lewis PA-C - Last Filed: 04/27/25 10:06> Labs CBC & Chem 7: 04/27/25 05:03 04/27/25 05:03 <Rodo Lewis PA-C - Last Filed: 04/27/25 10:06> Labs: Laboratory Results - last 24 hr 04/24/25 04/27/25 18:19 05:03 MCV 85.9 MCH 27.9 MCHC 32.4 RDW 14.2 Plt Count 497 H MPV 9.2 L Immature Gran % (Auto) 0.2 Neut % (Auto) 71.7 Lymph % (Auto) 20.0 [place] % (Auto) 7.6 Eos % (Auto) 0.2 Baso % (Auto) 0.3 Lymph # (Auto) 1.9 [place] # (Auto) 0.7 Eos # (Auto) 0.0 Baso # (Auto) 0.0 Abs Immat Gran (auto) 0.02 Absolute Neuts (auto) 6.8 Absolute Nucleated RBC 0.000 Nucleated RBC % (auto) 0.0 PT 14.6 H INR 1.2 H Anion Gap 14 Estim Creat Clear Calc 146.1 Estimated GFR > 60 Fasting Glucose 108 H Calcium 8.6 Total Bilirubin 1.1 H Direct Bilirubin 0.7 H AST 97 H ALT 194 H Alkaline Phosphatase 129 H C-React Prot High Sens >20.0 H Total Protein 7.2 Albumin 3.6 Blood Type B Positive Antibody Screen NEGATIVE <Rodo Lewis PA-C - Last Filed: 04/27/25 10:06> Microbiology Microbiology Results: Microbiology 04/24/25 18:19 Urine Culture - Final Urine clean catch - Clean Catch Midstream <Rodo Lewis PA-C - Last Filed: 04/27/25 10:06> Procedures Date of Service Date of Service: 04/27/25 <Rodo Lewis PA-C - Last Filed: 04/27/25 10:06> 04/27/25 <Hudson Hatch MD - Last Filed: 04/27/25 07:21> Progress Note: A&P Assessment and plan (1) Common bile duct stone: Status: Acute <Rodo Lewis PA-C - Last Filed: 04/27/25 10:06> Assessment and Plan: 30 year old female admitted for choledocolithasis. She feels well today, pain minimal, no nausea or vomiting. Had ERCP yesterday with Dr. Cheatham. Single filling defect in mid CBD. Stone removed. Liver enzymes remain elevated, now trending down. Bilirubin 1.1 today from 1.8 yesterday. Abdomen exam soft, benign No evidence of pancreatitis at this time. Plan for lap antionette today Continue ABX NPO Lap Antionette possible open this morning trend liver enzymes can advance diet after procedure <Rodo Lewis PA-C - Last Filed: 04/27/25 10:06> Time Spent With Patient Time: Total time managing care of this patient today ____ minutes. <Rodo Lewis PA-C - Last Filed: 04/27/25 10:06> Quality Stroke Does the patient have a stroke diagnosis?: No <Rodo Lewis PA-C - Last Filed: 04/27/25 10:06> VTE Prior VTE?: No <Rodo Lewis PA-C - Last Filed: 04/27/25 10:06> VTE Risk Level:: Medical - low <Rodo Lewis PA-C - Last Filed: 04/27/25 10:06> VTE Device Contraindication: N/A - Device Ordered <Rodo Lewis PA-C - Last Filed: 04/27/25 10:06> VTE Drug Contraindication: Treatment Not Indicated <Rodo Lewis PA-C - Last Filed: 04/27/25 10:06>
--- NOTE | 2025-04-27 07:20 | HO.ANESPROP2 ---
HPI - Anesthesia Eval Consult details Narrative: For lap. cholecystectomy PMFSH Active Problems Active Problems: All Active Problems Acute cholecystitis (Acute) Encounter for gynecological examination with Papanicolaou smear of cervix (Acute) Irregular periods (Acute) Obesity, morbid, BMI 40.0-49.9 (Acute) Cervical cancer screening (Acute) Laboratory exam ordered as part of routine general medical examination (Acute) Annual physical exam (Acute) Biliary colic (Acute) Gastritis (Acute) Common bile duct stone (Acute) Morbid (severe) obesity due to excess calories (Acute) Gallstones (Acute) Past Medical History Medical History Common bile duct stone Morbid (severe) obesity due to excess calories Gallstones Patient : No Family History Family history of problems with anesthesia: No Surgical History Surgical History [place] teeth extracted No pertinent past surgical history History of Problems with Anesthesia: No Social History Social History Household Members: Family Household Members Other:: Mom and foster child Housing: Apartment Are you a primary infant childcare provider to a significant other at home: No Do you presently have visiting nurse or other home services: No 75 years or older and lives alone: No Alcohol intake: never Patient Tobacco Use Status: Never used Tobacco e-Cigarette/Vaping Use: Never Used Second Hand Smoke Exposure: No service: No Current occupational status: unemployed and disabled Current occupational exposures/hazards: No Gender identity: Female Cognitive needs: No Hearing needs: No Vision needs: No Meds Allergies Allergy/AdvReac Type Severity Reaction Status Date / Time No Known Allergies Allergy Verified 04/24/25 16:23 Active Medications: Current Medications Acetaminophen (Acetaminophen 325 Mg Tablet) 650 mg PO Q6H PRN PRN Reason: Pain, Mild 1-3,fever,headache Last Admin: 04/25/25 03:49 Dose: 650 mg Calcium Carbonate (Calcium Carbonate 750 Mg Tab.Chew) 750 mg PO Q4H PRN PRN Reason: Heartburn Lactated Ringer's (Lr) 1,000 mls @ 80 mls/hr IVCONT .[id number] [id number] Last Admin: 04/27/25 03:11 Dose: Not Given Piperacillin Sod/Tazobactam (Sod 3.375 gm/ Sodium Chloride) 50 mls @ 100 mls/hr IV Q6H [facility] Last Infusion: 04/27/25 03:38 Dose: Infused Lactated Ringer's (Lr) 1,000 mls @ 50 mls/hr IVCONT .Q20H [facility] Last Admin: 04/27/25 07:02 Dose: 50 mls/hr Melatonin (Melatonin 3 Mg Tablet) 6 mg PO BEDTIME PRN PRN Reason: Insomnia Morphine Sulfate (Morphine Sulfate 4 Mg/Ml Cartridge) 3 mg IVPUSH Q3H PRN; Protocol PRN Reason: Pain, Severe (Pain Scale 7-10) Last Admin: 04/26/25 10:46 Dose: 3 mg Naloxone HCl (Naloxone Hcl 0.4 Mg/Ml Vial) 0.04 mg IVPUSH Q5M PRN PRN Reason: Excessive sedation or RR < 8 Ondansetron HCl (Ondansetron Hcl 4 Mg/2 Ml Vial) 4 mg IVPUSH Q8H PRN PRN Reason: Nausea and Vomiting Last Admin: 04/25/25 08:06 Dose: 4 mg Sodium Chloride (0.9 % Sodium Chloride Flush 3 Ml Syringe) 3 ml IVFLUSH QSHIFT [facility] Last Admin: 04/27/25 06:53 Dose: Not Given Home Medications ?Medication ?Instructions ?Recorded ?Confirmed ?Last Taken ?Type acetaminophen 325 mg tablet 650 mg PO Q6H PRN Pain 04/25/25 04/25/25 04/24/25 History Exam Height,Weight and Vital Signs: Height 5 ft 2 in Weight 114.5 kg Last Vital Signs Temp 97.9 F 04/27/25 07:00 Pulse 79 04/27/25 07:00 Resp 16 04/27/25 07:00 BP 119/70 04/27/25 07:00 Pulse Ox 97 04/27/25 07:00 O2 Del Method Room Air 04/27/25 07:00 O2 Flow Rate 2 04/27/25 03:14 Pertinent Lab Results Pertinent Lab Results: Laboratory Tests 04/24/25 04/24/25 04/24/25 16:55 18:18 18:19 WBC 8.4 RBC 4.67 Hgb 12.7 Hct 39.2 MCV 83.9 MCH 27.2 MCHC 32.4 RDW 14.0 Plt Count 575 H D MPV 9.0 L Immature Gran % (Auto) 0.4 Neut % (Auto) 59.5 Lymph % (Auto) 29.2 [place] % (Auto) 8.6 Eos % (Auto) 1.8 Baso % (Auto) 0.5 Lymph # (Auto) 2.4 [place] # (Auto) 0.7 Eos # (Auto) 0.2 Baso # (Auto) 0.0 Abs Immat Gran (auto) 0.03 Absolute Neuts (auto) 5.0 Absolute Nucleated RBC 0.000 Nucleated RBC % (auto) 0.0 PT 14.8 H INR 1.2 H Sodium 142 Potassium 3.4 Chloride 108 Carbon Dioxide 25 Anion Gap 12 BUN 8 L Creatinine 0.67 Estim Creat Clear Calc 148.3 Estimated GFR > 60 Random Glucose 120 H Fasting Glucose Calcium 9.2 Total Bilirubin 1.7 H Direct Bilirubin 1.2 H AST 221 H ALT 290 H Alkaline Phosphatase 141 H C-React Prot High Sens >20.0 H Total Protein 8.1 H Albumin 4.1 Lipase 16 Urine Color Dark Yellow Urine Appearance Clear Urine pH 5.0 Ur Specific [place] >= 1.030 H Urine Protein Trace Urine Glucose (UA) Negative Urine Ketones Trace Urine Blood Moderate (2+) H Urine Nitrite Positive H Ur Leukocyte Esterase Trace H Urine RBC 11-20 H Urine WBC 0-5 Ur Squamous Epith Cells 3-5 Urine Bacteria Trace Hyaline Casts 3-5 Urine Test NEGATIVE Influenza Type A (PCR) NEGATIVE Influenza Type B (PCR) NEGATIVE RSV RNA Qual (PCR) NEGATIVE SARS-CoV-2 RNA (RT-PCR) NEGATIVE Blood Type Antibody Screen 04/25/25 04/26/25 04/27/25 04:33 05:17 05:03 WBC 9.4 RBC 4.27 Hgb 11.9 L Hct 36.7 L MCV 85.9 MCH 27.9 MCHC 32.4 RDW 14.2 Plt Count 497 H MPV 9.2 L Immature Gran % (Auto) 0.2 Neut % (Auto) 71.7 Lymph % (Auto) 20.0 [place] % (Auto) 7.6 Eos % (Auto) 0.2 Baso % (Auto) 0.3 Lymph # (Auto) 1.9 [place] # (Auto) 0.7 Eos # (Auto) 0.0 Baso # (Auto) 0.0 Abs Immat Gran (auto) 0.02 Absolute Neuts (auto) 6.8 Absolute Nucleated RBC 0.000 Nucleated RBC % (auto) 0.0 PT 15.5 H 14.6 H INR 1.3 H 1.2 H Sodium 142 141 140 Potassium 3.7 3.5 4.0 Chloride 111 H 106 106 Carbon Dioxide 24 25 24 Anion Gap 11 L 14 14 BUN 6 L 4 L 8 L Creatinine 0.80 0.72 0.68 Estim Creat Clear Calc 124.2 138.0 146.1 Estimated GFR > 60 > 60 > 60 Random Glucose 108 96 Fasting Glucose 108 H Calcium 8.5 D 8.9 8.6 Total Bilirubin 1.4 H 1.8 H 1.1 H Direct Bilirubin 1.2 H 0.7 H AST 140 H 111 H 97 H ALT 225 H 220 H 194 H Alkaline Phosphatase 121 H 131 H 129 H C-React Prot High Sens Total Protein 6.8 7.5 7.2 Albumin 3.4 L 3.7 3.6 Lipase Urine Color Urine Appearance Urine pH Ur Specific [place] Urine Protein Urine Glucose (UA) Urine Ketones Urine Blood Urine Nitrite Ur Leukocyte Esterase Urine RBC Urine WBC Ur Squamous Epith Cells Urine Bacteria Hyaline Casts Urine Test Influenza Type A (PCR) Influenza Type B (PCR) RSV RNA Qual (PCR) SARS-CoV-2 RNA (RT-PCR) Blood Type B Positive Antibody Screen NEGATIVE Airway Mallampati Class: II TM Dist: <=3cm Neck ROM: Full Loose/Missing/Broken Teeth: No Heart: ok Lungs: ok Assessment and Plan Assessment Anesthesia Assessment: Anesthesia Plan Discussed and Chart Reviewed Final Anesthetic Review Family History of Problems with Anesthesia: No History of Problems with Anesthesia: No NPO: Yes ASA Class: III Final Preanesthetic Review: No Changes in Pt Med Stat, Meds/Allgs Chart Reviewed, Consent Obtained/Reviewed and Anes Risks/Benef Reviewed Patient Risk: Intermediate Procedure Risk: Intermediate Anesthetic Plan Anesthetic Plan: GA and Agree w/ Assess. and Plan Disposition: Standard PACU
--- NOTE | 2025-04-27 08:24 | HO.POSTANES ---
Post Anesthesia Evaluation Post Anesthesia Evaluation Date of Service: 04/27/25 Vital Signs: Vital Signs Temp Pulse Resp BP Pulse Ox O2 Del Method O2 Flow Rate 04/27/25 07:00 97.9 F 79 16 119/70 97 Room Air 04/27/25 03:14 97.2 F 93 15 113/66 93 Nasal Cannula 2 Anesthesia: General Comments: pt was back in OR for lap miroslava at time of post op rounds
--- NOTE | 2025-04-27 09:18 | P.OP_ITS ---
Operative Note Operative Note Date of Service: 04/27/25 Narrative: Preop diagnosis: Acute cholecystitis, CBD stones, status post ERCP Postop diagnosis: The same Procedure: Laparoscopic cholecystectomy Surgeon: Hudson Hatch MD 1st assistant merchandise manager: ATA Lewis The patient is a 30 year female admitted because of epigastric pain, with note of elevated bilirubin and a CBD stone on CAT scan. She underwent ERCP yesterday with clearance of the common bile duct achieve. She was scheduled for laparoscopic cholecystectomy today. She understood the technique of the planned procedure as well as the risks, benefits, and alternatives She was brought to the operating room and placed supine under general anesthesia via endotracheal tube. The abdomen was prepped and draped in the usual sterile fashion. A surgical time-out was done. The patient was on scheduled IV antibiotics. I made a short incision on the supraumbilical area using blade 15. This was carried down through the full-thickness of the skin and thick subcutaneous fat to the fascia. The the patient was morbidly obese with a very thick layer of subcutaneous fat so exposure of the fascia was achieved with difficulty. The fascia was incised. The peritoneum was entered. Through this incision a Vergara port was introduced pneumoperitoneum was introduced to a pressure of 15 mm Hg. From here on the rest of procedure was done under vision with the 10 mm flat laparoscope. With laparoscopic visualization, I inserted a 5/12 mm port in the epigastric area. Two 5 mm ports introduced a small incision below the subcostal margin along the anterior axillary line and the midclavicular line. Graspers were placed through these working ports. The patient was placed in a head up and [id number] position. The gallbladder was seen. This was noted to be soft although markedly distended with some mild erythema. I was able to apply a grasper at the fundus to retract this cephalad. I proceeded to apply another grasper towards the pouch of the gallbladder to retract this laterally. At this point the gallbladder was being retracted in a cephalad and lateral fashion to put the area of the cystic duct on stretch. I carefully dissected the neck of the gallbladder using the [place] dissector to tease off the peritoneal lining surrounding the neck. In view of the patient's morbid obesity, we had difficulty with angulation and good visualization of the area of the neck of the gallbladder. We therefore switched to a 30 degree 10 mm scope. We therefore had better association of the neck of the gallbladder and the area of the duct. The neck of the gallbladder towards the cystic duct was gently dissected and exposed using the [place] dissector. With continued dissection using the [place] dissector, I was eventually able to visualize the cystic duct and its confluence with the neck of the ga llbladder. This area of the cystic duct was surrounded by some indurated fiber areolar tissue. The node of [place] was also seen in the limited our dissection above the level of this lymph node. The cystic artery was also seen running alongside this. We had achieved a critical view of the hepatocystic triangle at this point. I therefore applied clips on the cystic duct with 2 clips being applied distally. The cystic duct was transected between clips with Endo scissors. I applied clips on the cystic artery with 2 clips applied distally. The cystic artery was transected with the clips with Endo scissors as well. With traction on the gallbladder away from the liver bed I proceeded to then carefully divide the hilum with the L hook electrocautery. I had to proceed slowly with a mm by mm dissection in view of the difficult angulation due to the patient's thick subcutaneous fat. I used the hook electrocautery to carefully divide the thickened peritoneum of the gallbladder and create a plane of dissection between the gallbladder with the liver bed. I slowly and carefully developed this plane of dissection. We periodically cauterized the liver bed. The gallbladder was retrieved through an endobag through the umbilical incision. I reinserted all ports and re-insufflated. There was note of good hemostasis in the liver bed. Examination for several sec showed that we had good hemostasis without any signs of any bile leak. I copiously irrigated and suctioned with the irrigant fluid. I observed all 4 quadrants and there was no other pathology seen. There appeared to be good hemostasis in the liver bed. There was no evidence of any bowel injury or bile leak. We then desufflated through the port sites. The ports were removed, with the umbilical port removed last. The fascia of the umbilical incision was closed with a [id number] Polysorb 0 stitch. Skin closure was achieved on all incisions using Polysorb 4-0 subcuticular running sutures. All incisions were infiltrated with [place] 0.5% for postop analgesia. Steri-Strips and dressings were applied and the procedure was completed. The patient tolerated the procedure well. There were no immediate complications. Initial and final counts of sponges and instruments were correct. Estimated blood loss was about 25 cc. The patient was extubated without difficulty and transferred to the recovery room with stable vital signs.
[2025-04-27] MEDS: Lactated Ringers 1,000 ML 80 ML IVCONT (10:38)
[2025-04-27] MEDS: oxyCODONE HCl Immed Release 5 MG TABLET PO (11:03)
--- NOTE | 2025-04-27 13:36 | PM.EVENT ---
Event Note Date of Service: 04/27/25 Event Note: Seen postop Patient tolerating lunch She says she has adequate pain control Looks well overall Stable vital signs Abdomen is soft She can be discharged today if she feels ready I reinforced with her discharge instructions Follow up in the office I have updated her family Time Spent With Patient Time: Total time managing care of this patient today ____ minutes.
--- NOTE | 2025-04-27 15:09 | P.DS_ITS ---
DS: Providers Provider Date of admission: 04/24/25 21:47 Date of discharge: 04/27/25 Primary care physician: None Physician Admitting clinician: Hudson Hatch Attending physician on admission: Hudson Hatch Consults: 04/24/25 21:47 Consult to Gastroenterology Routine Consulting [place] [facility] [place] Reason for consultation: CBD stone Attending physician on discharge: Hudson Hatch DS: Diagnosis Discharge Diagnosis (1) Common bile duct stone: Status: Acute DS: Summary Hospital Course Hospital Course: Admission HPI Genesis Rodrigues is a 30 year old female, morbidly obese, seen earlier because of abdominal pain. She describes this has in the epigastric area mostly she says this started night which was around 48 hours prior to her admission last night She describes this as constant. She denies describes nausea without any vomiting. She says she has known gallstones. She says that she did not want any surgery for this in the past . She currently says that her pain is controlled well with medications. She has had no fever or chills. Hospital Course Patient was admitted on 04/25/2025 for choledocholithiasis. She was started on IV antibiotics, GI was consulted for possible ERCP. Patient was comfortable, ERCP planned for 04/26. Patient had ERCP, Single filling defect in mid CBD. Stone removed. Liver enzymes remain elevated, now trending down. There was no evidence of pancreatitis on POD 1 following ERCP She otherwise felt well. She was brought to the operating room later that day for laparoscopic cholecystectomy. The procedure was uncomplicated and the patient was transferred from PACU back to the floor. Diet was advanced to clear liquids. Later that day s/p CCY, patient doing well, minimal pain, tolerating clear liquids, diet was advacned to regular diet. She tolerated this well. She was comfortable ambulating, felt ready to go home. At the time of discharge, patient was in stable condition, her abdomen was soft and benign, incision sites were clean, dry and intact with dressings in place. Dietary and acitivyt restrictions were reinforced with patient. She will follow up in the office in 2 weeks. Status at Discharge Functional status at discharge: independent ambulation Overall status at discharge: patient is progressing back to baseline Time Attestation Discharge Coordination Time (in mins): 30 Quality: Safe Use of Opioids Does Pt have an Active Cancer Diagnosis on the Problem List?: No Quality: Stroke Does the patient have a stroke diagnosis?: No Physical Exam Vital Signs: Vital Signs: Last Vital Signs Temp 97.2 F 04/27/25 10:43 Pulse 70 04/27/25 10:43 Resp 16 04/27/25 10:43 BP 132/78 04/27/25 10:43 Pulse Ox 94 04/27/25 10:43 O2 Del Method Nasal Cannula 04/27/25 10:43 O2 Flow Rate 2 04/27/25 10:43 BMI result Body Mass Index 46.2 Const: General: comfortable and no acute distress Nutritional Appearance: obese Orientation/consciousness: patient oriented x3 Resp: Effort & Inspection: normal respiratory effort and able to speak in complete sentences GI: Inspection: No distended Palpation (GI): Soft to palpation, nontender and no guarding Neuro: General: patient oriented x3 DS: Data Data Completed and Pending Pending studies at discharge: Pending at discharge 04/27/25 08:45 Surgical [PTH] Routine Labs on day of discharge: Laboratory Results - last 24 hr 04/24/25 04/27/25 18:19 05:03 WBC 9.4 RBC 4.27 Hgb 11.9 L Hct 36.7 L MCV 85.9 MCH 27.9 MCHC 32.4 RDW 14.2 Plt Count 497 H MPV 9.2 L Immature Gran % (Auto) 0.2 Neut % (Auto) 71.7 Lymph % (Auto) 20.0 [place] % (Auto) 7.6 Eos % (Auto) 0.2 Baso % (Auto) 0.3 Lymph # (Auto) 1.9 [place] # (Auto) 0.7 Eos # (Auto) 0.0 Baso # (Auto) 0.0 Abs Immat Gran (auto) 0.02 Absolute Neuts (auto) 6.8 Absolute Nucleated RBC 0.000 Nucleated RBC % (auto) 0.0 PT 14.6 H INR 1.2 H Sodium 140 Potassium 4.0 Chloride 106 Carbon Dioxide 24 Anion Gap 14 BUN 8 L Creatinine 0.68 Estim Creat Clear Calc 146.1 Estimated GFR > 60 Fasting Glucose 108 H Calcium 8.6 Total Bilirubin 1.1 H Direct Bilirubin 0.7 H AST 97 H ALT 194 H Alkaline Phosphatase 129 H C-React Prot High Sens >20.0 H Total Protein 7.2 Albumin 3.6 Blood Type B Positive Antibody Screen NEGATIVE Discharge Plan Discharge Anticipated Discharge Date/Time: 04/27/25 15:00 Patient Disposition: Home, Self-Care Discharge Diagnosis: Cholecystitis with CBD stones Referrals: Hudson Hatch MD [Physician, General Surgery] - 2 Weeks Physician,Shruti [Primary Care Provider, Medical] - 1 Week Discharge Medications: New ibuprofen 600 mg tablet 600 mg PO Q6H PRN (Reason: pain) Qty: 20 0RF oxycodone-acetaminophen 5-325 mg tablet 1 tab PO Q6H PRN (Reason: pain) Qty: 25 0RF Rx Instructions: Partial Fill upon patient request. Discontinued acetaminophen 325 mg Tablet 650 mg PO Q6H PRN (Reason: Pain) Discharge Orders: Discharge Order (Routine); Ordered 04/27/25 Ordered By: Hudson Hatch Diet: Low fat, low cholesterol Activity on Discharge: No heavy lifting Stand Alone Forms: Patient Portal Discharge page Print Language: Salvadorean Activity Restrictions/Additional Instructions: If the incision area is tender, you may apply an ice pack for short intervals (No more than 20 minutes on, followed by at least 20 minutes off). Do not apply heat. Do not use creams, lotions, or topical antibiotics unless instructed to do so by your surgeon. These can cause infection or allergic reaction. No lifting more than 20 lbs Okay to shower after 24 hours Okay to change dressings with gauze or Band-Aid after 24 hours No strenuous activities Call the office for follow-up in 2 weeks - with Dr. Hatch Call Your Doctor If: -Your temperature exceeds 101.5? F -You experience excessive pain or swelling -You have an unexpected reaction to medication -You have excessive bleeding -You experience continued vomiting/nausea -Your incision begins to separate -Your incision shows signs of infection such as increased redness, swelling, excessive pain, drainage (light blood or clear fluid is normal) or heat Care Plan Goals: Return to baseline health Health Concerns: Status post laparoscopic cholecystectomy Plan of Treatment: Oral pain meds Office follow up Assessment: Doing very well Discharge Date/Time: 04/27/25 13:32
--- NOTE | 2025-04-27 15:22 | MHC.CM.PN ---
Addendum entered by Ana Lilia Car 04/27/25 16:10: Patient was discharged prior to being seen by case management. Original Note: Patient discharged to home self care. She has arranged for transportation home.
== END 2025-04-27 13:32 | disposition home or self-care (01) | DRG 263 ==
LOC: HO.ED 21:40 → HO.EDOVER 22:00 → HO.S3 04-25 15:43
PROVIDERS: Internal Medicine; Nurse Practitioner; Nurse Practitioner Family; Admitting Provider Surgery; Emergency Provider Student in an Organized Health Care Education/Training Program; Visit Provider Surgery
PROC: 0FC98ZZ Extirpation of Matter from Common Bile Duct, Via Natural or Artificial Opening Endoscopic (ICD-10-PCS; CPT 43260; principal; 2025-04-26 14:00)
PROC: 0FT44ZZ Resection of Gallbladder, Percutaneous Endoscopic Approach (ICD-10-PCS; CPT 47562; principal; 2025-04-27 07:30)
DX: K80.63 Calculus of gallbladder and bile duct with acute cholecystitis with obstruction (principal); E66.01 Morbid (severe) obesity due to excess calories; Z20.822 Contact with and (suspected) exposure to COVID-19; Z68.42 Body mass index [BMI] 45.0-49.9, adult; Z71.3 Dietary counseling and surveillance
CPT/HCPCS: 36415; 74177; 74181; 76705; 80048; 80053; 80076; 81001; 81025; 82248; 83690; 85025; 85610; 86141; 86850; 86900; 86901; 87086; 87637; 88304; 99285; J0131; J0696; J1610; J1836; J2003; J2270; J2405; J2543; J2704; J2795; J3010; J3430; J7120; Q9967

== ENCOUNTER 2025-04-24 21:47 | Outpatient (BNV) | payer OTHER, SELFPAY | END 2025-04-26 12:10 | PROVIDERS: Admitting Provider Surgery; Emergency Provider Student in an Organized Health Care Education/Training Program; Visit Provider Radiology Diagnostic Radiology | DX: K80.00 Calculus of gallbladder with acute cholecystitis without obstruction (principal); K76.0 Fatty (change of) liver, not elsewhere classified | CPT/HCPCS: 74181 ==

== ENCOUNTER → 2025-04-24 21:47 | Outpatient (BNV) | payer OTHER, SELFPAY | PROVIDERS: Admitting Provider Surgery; Emergency Provider Student in an Organized Health Care Education/Training Program; Visit Provider Internal Medicine | DX: K80.50 Calculus of bile duct without cholangitis or cholecystitis without obstruction (principal); K80.01 Calculus of gallbladder with acute cholecystitis with obstruction | CPT/HCPCS: 99222 ==

== ENCOUNTER → 2025-04-24 21:47 | Outpatient (BNV) | payer OTHER, SELFPAY | PROVIDERS: Admitting Provider Surgery; Emergency Provider Student in an Organized Health Care Education/Training Program; Visit Provider Surgery | DX: K80.50 Calculus of bile duct without cholangitis or cholecystitis without obstruction (principal) | CPT/HCPCS: 99222; 99499 ==